=== PATIENT | male | born 1960 | race Caucasian/White ===

== ENCOUNTER 2018-04-09 05:41 | Emergency (ER) | payer OTHER, MEDICARE ==
[2018-04-09] MEDS ORDERED: MORPHINE SULFATE 10 MG/ML INJ IV ONE (07:02)
[2018-04-09] MEDS ORDERED: ONDANSETRON HCL INJ/PF 4 MG/2 ML SDV IV ONE (07:03)
--- NOTE | 2018-04-09 07:17 | ER Document Report ---
ED General - General Chief Complaint: Abdominal Pain Stated Complaint: ABDOMINAL PAIN Time Seen by Provider: 04/09/18 06:51 Mode of Arrival: Ambulatory Information source: Patient, Relative, [facility] Records Notes: 57-year-old male with no reported past medical history presents with complaint of right lower quadrant abdominal pain that started 2 weeks prior to arrival. Patient states that he was seen at [facility] his general practitioner and a CAT scan was ordered last week but he has not yet received the results. He does state that it was the first time he had been seen by a physician in many years and was told that he has "hardening of the liver". Patient's pain is described as sharp, constant and worsens overnight. Patient has had associated nausea without vomiting. He reports constipation with his last bowel movement 2 days ago. Patient was started on Levaquin for pneumonia and states that his cough and chest tightness has resolved. He is currently on day 4 of Levaquin. Patient admits to heavy alcohol use with daily beer drinking. He states his last drink was 4 days prior to arrival. He denies any history of alcohol withdrawal, tremors, tachycardia, shortness of breath, chest pain. He denies any abdominal surgeries. TRAVEL OUTSIDE OF THE [place] IN LAST 30 DAYS: No - HPI Onset: Other Onset/Duration: Gradual, Persistent, Worse Quality of pain: Stabbing Severity: Moderate Associated symptoms: Nausea, Other - Constipation, right lower quadrant abdominal pain. denies: Chest pain, Nonproductive cough, Productive cough, Diarrhea, Fever, Vomiting, Shortness of breath Exacerbated by: Movement Relieved by: Denies Similar symptoms previously: Yes Recently seen / treated by doctor: Yes - [facility] on 04/05/2018 - Related Data Allergies/Adverse Reactions: No Known Allergies Allergy (Verified 04/09/18 11:32) Past Medical History - General Information source: Patient, [facility] Records - Social History Smoking Status: Never Smoker Frequency of alcohol use: Heavy - Last drink 4 days ago Drug Abuse: None Lives with: Alone Family History: Reviewed & Not Pertinent Patient has suicidal ideation: No Patient has homicidal ideation: No - Medical History Medical History: Negative Review of Systems - Review of Systems Notes: REVIEW OF SYSTEMS: CONSTITUTIONAL : Denies fever, chills, or sweats. Denies recent illness. Denies weight loss, recent hospitalizations. EENT: Denies visual changes, eye pain. Denies sore throat, oral lesions, difficulty swallowing. CARDIOVASCULAR: Denies chest pain. Denies palpitations. Denies lower extremity edema. RESPIRATORY: Denies cough. Denies shortness of breath, wheezing. GASTROINTESTINAL: Denies vomiting, or diarrhea. Denies blood in vomitus, stools, or per rectum. Denies black, tarry stools. GENITOURINARY: Denies difficulty urinating, painful urination, frequency, blood in urine, testicular pain or penile discharge. MUSCULOSKELETAL: Denies back or neck pain or stiffness. Denies joint pain or swelling. SKIN: Denies rash, lesions or sores. HEMATOLOGIC : Denies easy bruising or bleeding. LYMPHATIC: Denies swollen glands. NEUROLOGICAL: Denies confusion or altered mental status. Denies loss of consciousness. Denies dizziness or lightheadedness. Denies headache. Denies weakness or paralysis. Denies problems difficulty with ambulation, slurred speech. Denies sensory loss, numbness, or tingling. Denies seizures. PSYCHIATRIC: Denies anxiety or stress. Denies depression, suicidal ideation, or Physical Exam - Vital signs Vitals: Pulse Resp BP Pulse Ox 100 20 161/94 H 94 04/09/18 05:43 04/09/18 05:43 04/09/18 05:43 04/09/18 05:43 Interpretation: Hypertensive - Notes Notes: PHYSICAL EXAMINATION: GENERAL: Well-appearing, well-nourished and in no acute distress. HEAD: Atraumatic, normocephalic. EYES: Pupils equal round and reactive to light, extraocular movements intact, sclera anicteric, conjunctiva are normal. ENT: Nares patent, oropharynx clear without exudates. Moist mucous membranes. NECK: Normal range of motion, supple without lymphadenopathy LUNGS: Breath sounds clear to auscultation bilaterally and equal. No wheezes rales or rhonchi. HEART: Regular rate and rhythm without murmurs ABDOMEN: Distended abdomen. Right lower quadrant abdominal pain no guarding, no rebound. No masses appreciated. Musculoskeletal: Normal range of motion, no pitting or edema. No cyanosis. NEUROLOGICAL: Cranial nerves grossly intact. Normal speech, normal gait. Normal sensory, motor exams PSYCH: Normal mood, normal affect. SKIN: Warm, Dry, normal turgor, no rashes or lesions noted. Course - Re-evaluation Re-evalutation: Laboratory 04/09/18 04/09/18 04/09/18 06:25 07:10 07:10 WBC 10.9 H RBC 4.16 L Hgb 14.4 Hct 41.4 MCV 100 H MCH 34.5 H MCHC 34.7 RDW 12.7 Plt Count 354 Seg Neutrophils % 76.5 Lymphocytes % 9.3 L Monocytes % 13.3 H Eosinophils % 0.5 Basophils % 0.4 Absolute Neutrophils 8.4 H Absolute Lymphocytes 1.0 Absolute Monocytes 1.5 H Absolute Eosinophils 0.1 Absolute Basophils 0.0 Sodium 132.1 L Potassium 4.6 Chloride 93 L Carbon Dioxide 26 Anion Gap 13 BUN 7 Creatinine 0.60 Est GFR ( Amer) > 60 Est GFR (Non-Af Amer) > 60 Glucose 115 H Lactic Acid Calcium 9.8 Total Bilirubin 2.6 H Direct Bilirubin 2.2 H Neonat Total Bilirubin Not Reportable Neonat Direct Bilirubin Not Reportable Neonat Indirect Bili Not Reportable AST 199 H ALT 64 Alkaline Phosphatase 294 H Troponin I Total Protein 7.3 Albumin 3.6 Lipase 158.6 Urine Color DEYANIRA Urine Appearance TURBID Urine pH 5.0 Ur Specific [place] 1.017 Urine Protein NEGATIVE Urine Glucose (UA) NEGATIVE Urine Ketones NEGATIVE Urine Blood NEGATIVE Urine Nitrite NEGATIVE Urine Bilirubin SMALL H Urine Urobilinogen 4.0 H Ur Leukocyte Esterase NEGATIVE Urine WBC (Auto) 2 Urine RBC (Auto) 1 Squamous Epi Cells Auto <1 Urine Mucus (Auto) MOD Urine Ascorbic Acid NEGATIVE 04/09/18 04/09/18 07:10 07:10 WBC RBC Hgb Hct MCV MCH MCHC RDW Plt Count Seg Neutrophils % Lymphocytes % Monocytes % Eosinophils % Basophils % Absolute Neutrophils Absolute Lymphocytes Absolute Monocytes Absolute Eosinophils Absolute Basophils Sodium Potassium Chloride Carbon Dioxide Anion Gap BUN Creatinine Est GFR ( Amer) Est GFR (Non-Af Amer) Glucose Lactic Acid 1.2 Calcium Total Bilirubin Direct Bilirubin Neonat Total Bilirubin Neonat Direct Bilirubin Neonat Indirect Bili AST ALT Alkaline Phosphatase Troponin I < 0.012 Total Protein Albumin Lipase Urine Color Urine Appearance Urine pH Ur Specific [place] Urine Protein Urine Glucose (UA) Urine Ketones Urine Blood Urine Nitrite Urine Bilirubin Urine Urobilinogen Ur Leukocyte Esterase Urine WBC (Auto) Urine RBC (Auto) Squamous Epi Cells Auto Urine Mucus (Auto) Urine Ascorbic Acid Abdomen/Pelvis CT 04/09/18 07:03 IMPRESSION: 1. MARKED HEPATOMEGALY. SLIGHTLY HETEROGENOUS NODULAR APPEARANCE OF THE LIVER. CONSIDER THE POSSIBILITY OF CIRRHOSIS OR OTHER CHRONIC LIVER DISEASE. 2. SMALL NODULE IN THE LEFT ADRENAL GLAND. POSSIBLY AN ADENOMA. IF CLINICALLY INDICATED, CONSIDER FOLLOW-UP MRI OF THE ADRENAL GLANDS. 3. TRACE PLEURAL EFFUSIONS. TRACE FREE FLUID IN THE ABDOMEN AND PELVIS. 4. NO OTHER SIGNIFICANT OR ACUTE FINDINGS IN THE ABDOMEN OR PELVIS. Abdomen Ultrasound 04/09/18 08:20 IMPRESSION: 1. HEPATOMEGALY WITH INNUMERABLE HYPOECHOIC MASSES THROUGHOUT THE LIVER, CONCERNING FOR DIFFUSE METASTATIC INVOLVEMENT. 2. LIMITED EVALUATION OF THE GALLBLADDER WHICH IS CONTRACTED WITH INDISTINCT GALLBLADDER WALL THICKENING. POSSIBLE SMALL STONES AND/OR SLUDGE. 57-year-old male with no reported past medical history presents with complaint of right lower quadrant abdominal pain that started 2 weeks prior to arrival. Patient states that he was seen at [facility] his general practitioner and a CAT scan was ordered last week but he has not yet received the results. He does state that it was the first time he had been seen by a physician in many years and was told that he has "hardening of the liver". Vital signs stable upon arrival. Exam is significant for abdominal distention, right lower quadrant abdominal pain. Patient did receive IV narcotic medication for his pain. CT of the abdomen showed market hepatomegaly concerning for cirrhosis but no significant ascites. Right upper quadrant ultrasound was obtained and showed innumerable masses throughout the liver concerning for diffuse metastatic involvement. The patient, his sister and his primary care physician , were all made aware of the findings. Patient and sister had no questions at this time. They are agreeable to see Dr. Abdul tomorrow at 2 PM. Patient was provided all of his imaging and lab work that was performed today. 04/09/18 08:16 Patient's primary care physician Melony LEYVA attempted to be contacted , to obtain patient's medical history. Patient is a poor informant and unable to tell me whether he has had previous LBBB. 04/09/18 08:27 I did speak to the patient's primary care provider who reviewed her recent labs with mine and patient's liver enzymes, bilirubin are basically the same. She cannot tell me what his recent CAT scan report showed. She does state that the patient has an upcoming appointment with her in 2 days and that the plan is to arrange gastroenterology follow-up. She has no EKG on record but requested copies of everything that we do today for comparison. 04/09/18 11:46 I did call back the patient's primary care provider to inform her that his right upper quadrant ultrasound is concerning for metastatic liver cancer. She will refer the patient to oncology. We will continue with the panel of pain control and provide his doctor with all of today's labs and imaging. 04/09/18 12:[address] Abdul oncology on-call who requested that I ask radiology if it was possible and ultrasound-guided liver biopsy be performed today. I was told no. She has agreed that if the biopsy cannot be done today that she will see the patient tomorrow at 2 PM in her office. 04/09/18 15:54 04/09/18 15:54 04/10/18 11:54 Patient was evaluated and treated as appropriate for the patient's presenting symptoms and complaint, with consideration of any critical or life threatening conditions that may be associated with their obtained history and exam as noted above. All results were discussed with patient. Patient provided the opportunity to ask questions, and express concerns. Patient was educated on treatments based on their presumed diagnosis as noted above. At this time we will discharge the patient with return precautions and follow-up recommendations. Verbal discharge instructions given a the bedside. Medication warnings reviewed. Patient is in agreement with this plan and has verbalized understanding of return precautions. After careful consideration I feel that that patient can be safely discharged from the emergency department, they were advised to followup with a primary care physician in 2-3 days. Dictation on this chart was performed using voice recognition software and may result in unintended grammatical, spelling, syntax or errors. - Vital Signs Vital signs: Temp Pulse Resp BP Pulse Ox 97.9 F 90 18 138/85 H 93 04/09/18 12:32 04/09/18 12:32 04/09/18 12:32 04/09/18 12:32 04/09/18 12:32 - Laboratory Result Diagrams: 04/09/18 07:10 04/09/18 07:10 Laboratory results interpreted by me: 04/09/18 04/09/18 04/09/18 06:25 07:10 07:10 WBC 10.9 H RBC 4.16 L MCV 100 H MCH 34.5 H Lymphocytes % 9.3 L Monocytes % 13.3 H Absolute Neutrophils 8.4 H Absolute Monocytes 1.5 H Sodium 132.1 L Chloride 93 L Glucose 115 H Total Bilirubin 2.6 H Direct Bilirubin 2.2 H AST 199 H Alkaline Phosphatase 294 H Urine Bilirubin SMALL H Urine Urobilinogen 4.0 H - Diagnostic Test Radiology reviewed: Image reviewed, Reports reviewed - EKG Interpretation by Me EKG shows normal: Sinus rhythm Rate: Normal Rhythm: NSR, PVC's Keo/QRS: LBBB When compared to previous EKG there are: Previous EKG unavailable Critical Care Note - Critical Care Note Total time excluding time spent on procedures (mins): 35 - Minutes of critical care time spent in direct contact evaluating and reevaluating the patient, treating symptoms, reviewing labs and studies and speaking with family and consultants excluding any procedures Discharge - Discharge Clinical Impression: Hepatomegaly, Concern for metastatic liver cancer, Tobacco use, Elevated blood pressure reading, Elevated alkaline phosphatase level, Abnormal liver enzymes Abdominal pain Qualifiers: Abdominal location: right lower quadrant Qualified Code(s): R10.31 - Right lower quadrant pain Condition: Good Disposition: HOME, SELF-CARE Instructions: Abdominal Pain ([facility]), Cirrhosis ([facility]), Liver Function Abnormality ([facility]), Pain Medication Injection ([facility]) Additional Instructions: Your ultrasound of your liver today was concerning for possible cancer. I have spoken to your primary care provider and she is aware of today's findings including your lab work and imaging. I have provided a copy of everything for you to bring with her on your next appointment in 2 days. Follow up with your [id number] hours for further care or return to the ED IMMEDIATELY if symptoms worsen or you have any concerns. If you cannot afford to follow up with your primary care physician a list of low cost clinics have been provided at the end of your discharge papers as well. Most prescribed medications have multiple side effects. The safest thing to do is when filling your prescription speak to your pharmacist regarding possible interactions with your normal home medications and over the counter medications such as Ibuprofen, Tylenol, Benadryl. If you experience any symptoms that cause you discomfort or concern you should discontinue the medication immediately and return to the emergency room or call your primary care physician. Prescriptions: Ondansetron [Zofran Odt 4 mg Tablet] 1 - 2 tab PO Q4H PRN #15 tab.rapdis PRN Reason: For Nausea/Vomiting Oxycodone HCl [Oxycodone HCl 10 MG Tablet] 1 tab PO Q6H PRN #15 tablet PRN Reason: PAIN Forms: Elevated Blood Pressure, Smoking Cessation Education Referrals: MELONY GARCIA PA-C [Primary Care Provider] - 04/11/18 CHANTELLE ABDUL MD [ACTIVE STAFF] - Follow up tomorrow (Your appointment is at 2 PM. Please arrive by 145.)
[2018-04-09 07:25] LABS: ABSOLUTE EOSINOPHILS # (AUTO) 0.1 10^3/uL (0.0-0.6); ABSOLUTE MONOCYTES (AUTO) 1.5 10^3/uL (0.1-1.4); ABSOLUTE NEUT (AUTO) 8.4 10^3/uL (1.7-8.2); BASOPHILS % (AUTO) 0.4 % (0-2); EOSINOPHILS % (AUTO) 0.5 % (0-6); HEMATOCRIT 41.4 % (37.9-51.0); HEMOGLOBIN 14.4 g/dL (13.5-17.0); LYMPHOCYTES % (AUTO) 9.3 % (13-45); MEAN CORPUSCULAR HEMOGLOBIN 34.5 pg (27.0-33.4); MEAN CORPUSCULAR HGB CONC 34.7 g/dL (32.0-36.0); MEAN CORPUSCULAR VOLUME 100 fl (80-97); MONOCYTES % (AUTO) 13.3 % (3-13); PLATELET COUNT 354 10^3/uL (150-450); RED BLOOD COUNT 4.16 10^6/uL (4.35-5.55); RED CELL DISTRIBUTION WIDTH 12.7 % (11.5-14.0); SEGMENTED NEUTROPHILS % (AUTO) 76.5 % (42-78); TOTAL CELLS COUNTED % (AUTO) 100 %; WHITE BLOOD COUNT 10.9 10^3/uL (4.0-10.5)
[2018-04-09 07:43] LABS: ALANINE AMINOTRANSFERASE 64 U/L (21-72); ALBUMIN 3.6 g/dL (3.5-5.0); ALKALINE PHOSPHATASE 294 U/L (38-126); ANION GAP 13 (5-19); ASPARTATE AMINO TRANSFERASE 199 U/L (17-59); BILIRUBIN,DIRECT 2.2 mg/dL (0.0-0.4); BILIRUBIN,TOTAL 2.6 mg/dL (0.2-1.3); BLOOD UREA NITROGEN 7 mg/dL (7-20); CALCIUM 9.8 mg/dL (8.4-10.2); CARBON DIOXIDE 26 mmol/L (22-30); CHLORIDE 93 mmol/L (98-107); GLUCOSE 115 mg/dL (75-110); LIPASE 158.6 U/L (23-300); POTASSIUM 4.6 mmol/L (3.6-5.0); SODIUM 132.1 mmol/L (137-145); TOTAL PROTEIN 7.3 g/dL (6.3-8.2)
[2018-04-09] MEDS ORDERED: FENTANYL CITRATE INJ/PF 100 MCG/2 ML AMPUL IV ONE (08:14)
--- NOTE | 2018-04-09 08:58 | RADIOLOGY REPORT (SQ) ---
EXAM DESCRIPTION: CT ABD/PELVIS WITH IV ONLY COMPLETED DATE/TIME: 04/09/2018 8:38 am REASON FOR STUDY: rlq pain COMPARISON: None. TECHNIQUE: CT scan of the abdomen and pelvis performed with intravenous and oral contrast using loren doris scanning technique with dynamic intravenous contrast injection. Images reviewed with lung, soft t issue, and bone windows. Reconstructed coronal and sagittal MPR images reviewed. Delayed images for e valuation of the urinary system also acquired. All images stored on PACS. All CT scanners at this facility use dose modulation, iterative reconstruction, and/or weight based d osing when appropriate to reduce radiation dose to as low as reasonably achievable (ALARA). [facility]: Dose Right [facility]: CareDose [facility]: Dose Right [facility]: Teradose 4D [facility]: PlastiPure CONTRAST TYPE AND DOSE: contrast/concentration: Isovue 350.00 mg/ml; Total Contrast Delivered: 100.0 ml; Total Saline Delivered: 70.0 ml RENAL FUNCTION: BUN 7 creatinine 0.6. RADIATION DOSE: CT Rad equipment meets quality standard of care and radiation dose reduction techniq ues were employed. CTDIvol: 15.2 - 17.4 mGy. DLP: 1911 mGy-cm.. LIMITATIONS: None. FINDINGS: LOWER CHEST: Trace pleural effusions. No nodules or infiltrates. LIVER: Marked hepatomegaly. Total length in the craniocaudal dimension is 24.5 cm and maximum transv erse dimension is 27 cm. Slightly heterogenous nodular appearance throughout. No masses. No dilate d ducts. SPLEEN: Normal size. No focal lesions. PANCREAS: No masses. No significant calcifications. No adjacent inflammation or peripancreatic fluid collections. Pancreatic duct not dilated. GALLBLADDER: No identified stones by CT criteria. No inflammatory changes to suggest cholecystitis. ADRENAL GLANDS: 1.5 cm nodule in the left adrenal gland. Normal right adrenal gland. RIGHT KIDNEY AND URETER: No solid masses. No significant calcification. No hydronephrosis or hydroure ter. LEFT KIDNEY AND URETER: No solid masses. No significant calcification. No hydronephrosis or hydrouret er. AORTA AND VESSELS: No aneurysm. No dissection. Renal arteries, SMA, celiac without stenosis. RETROPERITONEUM: No retroperitoneal adenopathy, hemorrhage or masses. BOWEL AND PERITONEAL CAVITY: No obstruction. No visualized masses. Trace free fluid adjacent to the liver. No inflammatory changes or thickening of bowel wall. APPENDIX: Normal. PELVIS: No significant masses. Normal bladder. Small amount of free fluid. ABDOMINAL WALL: No masses. No hernias. BONES: No significant or acute findings. Hardware in the left hip. OTHER: No other significant finding. IMPRESSION: 1. MARKED HEPATOMEGALY. SLIGHTLY HETEROGENOUS NODULAR APPEARANCE OF THE LIVER. CONSIDER THE POSSIBI LITY OF CIRRHOSIS OR OTHER CHRONIC LIVER DISEASE. 2. SMALL NODULE IN THE LEFT ADRENAL GLAND. POSSIBLY AN ADENOMA. IF CLINICALLY INDICATED, CONSIDER F OLLOW-UP MRI OF THE ADRENAL GLANDS. 3. TRACE PLEURAL EFFUSIONS. TRACE FREE FLUID IN THE ABDOMEN AND PELVIS. 4. NO OTHER SIGNIFICANT OR ACUTE FINDINGS IN THE ABDOMEN OR PELVIS. TECHNICAL DOCUMENTATION: JOB ID: [id number] Quality ID # [id number]: Final reports with documentation of one or more dose reduction techniques (e.g., Au tomated exposure control, adjustment of the mA and/or kV according to patient size, use of iterative reconstruction technique) 2010 [employer]- All Rights Reserved Reading location - IP/workstation name: [email or web address]
[2018-04-09 09:48] LABS: APPEARANCE,URINE TURBID; BILIRUBIN,URINE SMALL (NEGATIVE); COLOR,URINE AMBER; GLUCOSE, URINE NEGATIVE (NEGATIVE); KETONES,URINE NEGATIVE (NEGATIVE); LEUKOCYTE ESTERASE,URINE NEGATIVE (NEGATIVE); NITRITE,URINE NEGATIVE (NEGATIVE); PROTEIN,URINE NEGATIVE (NEGATIVE); URINE SPECIFIC GRAVITY 1.017
--- NOTE | 2018-04-09 10:40 | EKG REPORT ---
SEVERITY:- ABNORMAL ECG - SINUS RHYTHM MULTIPLE VENTRICULAR PREMATURE COMPLEXES LEFT BUNDLE BRANCH BLOCK : Confirmed by: Savanna Paige MD 09-Apr-2018 10:40:00
--- NOTE | 2018-04-09 11:08 | RADIOLOGY REPORT (SQ) ---
EXAM DESCRIPTION: U/S ABDOMEN LIMITED W/O DOP COMPLETED DATE/TIME: 04/09/2018 10:34 am REASON FOR STUDY: pain COMPARISON: None. TECHNIQUE: Dynamic and static grayscale images acquired of the abdomen and recorded on PACS. Additio nal selected color Doppler and spectral images recorded. LIMITATIONS: None. FINDINGS: PANCREAS: No masses. Visualized pancreatic duct normal caliber. LIVER: Enlarged, measuring 21.3 cm. Heterogenous echotexture with innumerable hypoechoic masses thro ughout. LIVER VASCULATURE: Normal directional flow of the main portal vein and hepatic veins. GALLBLADDER: Contracted and poorly visualized. Indistinct gallbladder wall thickening. Possible sto marily or sludge. ULTRASOUND-DETECTED MCKINNEY'S SIGN: Negative. INTRAHEPATIC DUCTS AND COMMON DUCT: CBD and intrahepatic ducts normal caliber. No filling defects. INFERIOR VENA CAVA: Normal flow. AORTA: No aneurysm. RIGHT KIDNEY: Normal size. Normal echogenicity. No solid or suspicious masses. No hydronephrosis. No calcifications. PERITONEAL AND RIGHT PLEURAL SPACE: No ascites or effusions. OTHER: No other significant findings. IMPRESSION: 1. HEPATOMEGALY WITH INNUMERABLE HYPOECHOIC MASSES THROUGHOUT THE LIVER, CONCERNING FOR DIFFUSE METAS TATIC INVOLVEMENT. 2. LIMITED EVALUATION OF THE GALLBLADDER WHICH IS CONTRACTED WITH INDISTINCT GALLBLADDER WALL THICKEN ING. POSSIBLE SMALL STONES AND/OR SLUDGE. TECHNICAL DOCUMENTATION: JOB ID: [id number] [email or web address]- All Rights Reserved Reading location - IP/workstation name: [email or web address]
[2018-04-09] MEDS ORDERED: HYDROMORPHONE HCL INJ/PF 2 MG/ML AMPULE IV ONE (12:05)
[2018-04-09 12:32] VITALS: BP 138/85
== END 2018-04-09 12:32 | disposition home or self-care (01) ==
LOC: ER 05:41
DX: R16.0 Hepatomegaly, not elsewhere classified (principal); R74.8 Abnormal levels of other serum enzymes; R10.31 Right lower quadrant pain; R03.0 Elevated blood-pressure reading, without diagnosis of hypertension; R11.0 Nausea; K59.00 Constipation, unspecified; F17.200 Nicotine dependence, unspecified, uncomplicated; Z79.899 Other long term (current) drug therapy
CPT/HCPCS: 93005; 99291; 96374; 96375; 36415; 83690; 85025; 80053; 81001; 84484; 83605; 76705; 74177; 93010; J3010; J2270; J1170; J2405

== ENCOUNTER 2018-04-12 09:10 | Day surgery (SDC) | payer OTHER, MEDICARE ==
[2018-04-12 10:01] LABS: HEMATOCRIT 40.4 % (37.9-51.0); MEAN CORPUSCULAR HEMOGLOBIN 34.5 pg (27.0-33.4); MEAN CORPUSCULAR HGB CONC 34.7 g/dL (32.0-36.0); MEAN CORPUSCULAR VOLUME 99 fl (80-97); PLATELET COUNT 382 10^3/uL (150-450); RED BLOOD COUNT 4.07 10^6/uL (4.35-5.55); RED CELL DISTRIBUTION WIDTH 12.8 % (11.5-14.0); WHITE BLOOD COUNT 9.6 10^3/uL (4.0-10.5)
[2018-04-12 10:13] LABS: INTERNATIONAL RATION (INR) 1.02
[2018-04-12 10:15] LABS: PARTIAL THROMBOPLASTIN TIME 38.3 SEC (23.5-35.8)
[2018-04-12 10:19] LABS: BLOOD UREA NITROGEN 6 mg/dL (7-20)
[2018-04-12] MEDS ORDERED: MIDAZOLAM 2 MG/2 ML INJ ONE (11:39)
[2018-04-12] MEDS ORDERED: FENTANYL CITRATE INJ/PF 100 MCG/2 ML AMPUL ONE (11:39)
[2018-04-12] MEDS ORDERED: LIDOCAINE 1% INJ-PF (10 MG/ML) 30 ML SDV ONE (11:39)
--- NOTE | 2018-04-12 12:59 | RADIOLOGY REPORT (SQ) ---
EXAM DESCRIPTION: CT BIOPSY LIVER; CT NEEDLE PLACEMENT COMPLETED DATE/TIME: 04/12/2018 12:15 pm REASON FOR STUDY: DIFFUSE LIVER LESIONS K76.9 LIVER DISEASE, UNSPECIFIED COMPARISON: None. TECHNIQUE: After obtaining informed consent and explaining the risks and benefits of conscious sedat ion,the patient agreed to the procedure. The patient was brought to the CT suite and was placed supin e on the CT gurney. The patient was prepped and draped in the usual sterile fashion . Axial images w ere obtained for targeting of theright low. An appropriate access site was selected. IV conscious sed ation was administered and physician direction by the registered nurse using 0 milligrams of Versed a nd 125 micrograms of fentanyl. Physiologic monitoring was provided before, during, and after sedation . The total sedation time was 30 minutes. Documentation face to face time, the performing proceduralist, spent monitoring the patient: 10minute s. Noncontrasted CT of the liver was performed to localize an approach for the right liver biopsy. A p ercutaneous site was marked. Time out was performed. After skin prep and local lidocaine for skin and deep tissue anesthesia, a coaxial biopsy needle sys tem was used to obtain several cores of tissue from the right lobe of the liver. These were submitte d to the lab in formalin. No immediate postprocedure complications. Total of [address] fluoro was used. 33 CT Fluoroscopic images were obtained and saved to PACS. All CT scanners at this facility use dose modulation, iterative reconstruction, and/or weight based d osing when appropriate to reduce radiation dose to as low as reasonably achievable (ALARA). [facility]: Dose Right [facility]: CareDose [facility]: Dose Right [facility]: Teradose 4D [facility]: [employer] RADIATION DOSE: CT Rad equipment meets quality standard of care and radiation dose reduction techniq ues were employed. CTDIvol: 4.0 - 19.9 mGy. DLP: 500 mGy-cm. mGy. LIMITATIONS: None. FINDINGS: CT guided liver biopsy as detailed above. IMPRESSION: CT GUIDED LIVER BIOPSY PERFORMED ABOVE. PATHOLOGY PENDING. NO IMMEDIATE COMPLICATI ONS. COMMENT: Patient medication list reviewed:Yes- Quality ID# [id number]:Eligible professional attests to docu menting in the medical record they obtained, updated, or reviewed the patient's current medications.. Quality ID 145: Final reports for procedures using fluoroscopy that document radiation exposure vikram tori, or exposure time and number of fluorographic images (if radiation exposure indices are not avail able) TECHNICAL DOCUMENTATION: JOB ID: [id number] Quality ID # [id number]: Final reports with documentation of one or more dose reduction techniques (e.g., A utomated exposure control, adjustment of the mA and/or kV according to patient size, use of iterative reconstruction technique) 2010 [employer]- All Rights Reserved Reading location - IP/workstation name: [email or web address]
--- NOTE | 2018-04-12 12:59 | RADIOLOGY REPORT (SQ) ---
EXAM DESCRIPTION: CT BIOPSY LIVER; CT NEEDLE PLACEMENT COMPLETED DATE/TIME: 04/12/2018 12:15 pm REASON FOR STUDY: DIFFUSE LIVER LESIONS K76.9 LIVER DISEASE, UNSPECIFIED COMPARISON: None. TECHNIQUE: After obtaining informed consent and explaining the risks and benefits of conscious sedat ion,the patient agreed to the procedure. The patient was brought to the CT suite and was placed supin e on the CT gurney. The patient was prepped and draped in the usual sterile fashion . Axial images w ere obtained for targeting of theright low. An appropriate access site was selected. IV conscious sed ation was administered and physician direction by the registered nurse using 0 milligrams of Versed a nd 125 micrograms of fentanyl. Physiologic monitoring was provided before, during, and after sedation . The total sedation time was 30 minutes. Documentation face to face time, the performing proceduralist, spent monitoring the patient: 10minute s. Noncontrasted CT of the liver was performed to localize an approach for the right liver biopsy. A p ercutaneous site was marked. Time out was performed. After skin prep and local lidocaine for skin and deep tissue anesthesia, a coaxial biopsy needle sys tem was used to obtain several cores of tissue from the right lobe of the liver. These were submitte d to the lab in formalin. No immediate postprocedure complications. Total of [address] fluoro was used. 33 CT Fluoroscopic images were obtained and saved to PACS. All CT scanners at this facility use dose modulation, iterative reconstruction, and/or weight based d osing when appropriate to reduce radiation dose to as low as reasonably achievable (ALARA). [facility]: Dose Right [facility]: CareDose [facility]: Dose Right [facility]: Teradose 4D [facility]: [employer] RADIATION DOSE: CT Rad equipment meets quality standard of care and radiation dose reduction techniq ues were employed. CTDIvol: 4.0 - 19.9 mGy. DLP: 500 mGy-cm. mGy. LIMITATIONS: None. FINDINGS: CT guided liver biopsy as detailed above. IMPRESSION: CT GUIDED LIVER BIOPSY PERFORMED ABOVE. PATHOLOGY PENDING. NO IMMEDIATE COMPLICATI ONS. COMMENT: Patient medication list reviewed:Yes- Quality ID# [id number]:Eligible professional attests to docu menting in the medical record they obtained, updated, or reviewed the patient's current medications.. Quality ID 145: Final reports for procedures using fluoroscopy that document radiation exposure vikram tori, or exposure time and number of fluorographic images (if radiation exposure indices are not avail able) TECHNICAL DOCUMENTATION: JOB ID: [id number] Quality ID # [id number]: Final reports with documentation of one or more dose reduction techniques (e.g., A utomated exposure control, adjustment of the mA and/or kV according to patient size, use of iterative reconstruction technique) 2010 [employer]- All Rights Reserved Reading location - IP/workstation name: [email or web address]
[2018-04-12 14:41] VITALS: BP 143/84
== END 2018-04-12 14:20 | disposition home or self-care (01) ==
LOC: RAD 09:10
PROVIDERS: ATTEND Internal Medicine Medical Oncology
DX: C7B.8 Other secondary neuroendocrine tumors (principal)
CPT/HCPCS: 36415; 84520; 82565; 85027; 85610; 85730; 88342 ×2; 88341 ×2; 88305 ×2; 88313 ×2; 77012; 47000; J3010; J3490; J2250

== ENCOUNTER → 2018-04-28 | Outpatient (CLI) | payer OTHER, MEDICARE ==
--- NOTE | 2018-04-29 10:39 | RADIOLOGY REPORT (SQ) ---
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 RADIONUCLIDE AND DOSE: 10 mCi F18 FDG The route of agent administration: Intravenous FASTING BLOOD SUGAR: 105 mg/dl CONTRAST TYPE AND DOSE: No CT contrast given. TECHNIQUE: Blood glucose level was verified. Above dose of FDG was injected intravenously. 2-D seg mented attenuation correction images were obtained from the base of the skull to the midthighs. Nonc ontrast CT images were obtained for attenuation correction and fusion with emission images. CT image s were performed without oral or intravenous contrast and are not sensitive for parenchymal lesions. A series of overlapping emission PET images were obtained. Images reviewed and manipulated at [facility] work station by the radiologist. Images stored on PACS. LIMITATIONS: None. FINDINGS: HEAD AND NECK: No areas of abnormal metabolic activity in the soft tissues of the head and neck. CHEST: Right hilar mass measuring 3.1 x 4.4 cm. Mean SUV 7.44. Postobstructive atelectasis/ infiltr ate in the posterior right lower lobe. ABDOMEN AND PELVIS: Diffuse hepatic enlargement with diffuse heterogeneity on CT imaging. Diffuse in creased activity on PET imaging. Expected physiologic activity is present in the genitourinary system and bowel. PROXIMAL LOWER EXTREMITIES: No areas of abnormal metabolic activity in the soft tissues of the lower extremities. BONES: No abnormal metabolic activity in the visualized skeleton. ADDITIONAL CT FINDINGS: No additional significant findings on the noncontrast CT images. Background blood pool activity mean SUV 1.36. Background soft tissue activity measured in the spleen, mean SUV 1.08. OTHER: No other significant findings. IMPRESSION: 1. HYPERMETABOLIC RIGHT HILAR MASS WHICH IS MOST LIKELY THE PATIENT'S PRIMARY. POSTOBSTRUCTIVE ATELE CTASIS VERSUS INFILTRATE. 2. MARKED HEPATOMEGALY WITH DIFFUSE HETEROGENEITY AND DIFFUSE INCREASED ACTIVITY ON PET IMAGING CONSI STENT WITH KNOWN METASTATIC INVOLVEMENT. 3. NO OTHER AREAS OF ABNORMAL ACTIVITY ON PET IMAGING. TECHNICAL DOCUMENTATION: JOB ID: [id number] [employer]- All Rights Reserved Reading location - IP/workstation name: [email or web address]
== END ==
LOC: RAD 19:07
PROVIDERS: ATTEND Internal Medicine Medical Oncology
DX: C7A.8 Other malignant neuroendocrine tumors (principal)
CPT/HCPCS: 78815; A9552

== ENCOUNTER 2018-08-22 11:52 | Emergency (ER) | payer MEDICARE, OTHER ==
[2018-08-22 12:04] VITALS: BP 120/56
--- NOTE | 2018-08-22 12:41 | ER Document Report ---
ED Medical Screen (RME) - General Chief Complaint: Upper Abdominal Pain Stated Complaint: STOMACH PAIN Time Seen by Provider: 08/22/18 12:38 Primary Care Provider: CHANTELLE ABDUL MD [Primary Care Provider] - Follow up as needed TRAVEL OUTSIDE OF THE [place] IN LAST 30 DAYS: No - HPI Notes: 08/22/18 12:38 complained of epigastric abdominal pain which started yesterday. He denies any trauma to the abdomen. He also denies chest pain but he has some shortness of breath. On exam, there is tenderness to palpation at the epigastric area of the abdomen. Patient has history of lung cancer with metastasis to the liver and he is on chemotherapy. - Related Data Allergies/Adverse Reactions: No Known Allergies Allergy (Verified 08/22/18 12:00) Past Medical History - Past Medical History Cardiac Medical History: Denies: Hx Coronary Artery Disease, Hx Heart Attack, Hx Hypertension Pulmonary Medical History: Reports: Hx Bronchitis, Hx Pneumonia - RECENT Denies: Hx Asthma, Hx COPD Neurological Medical History: Denies: Hx Cerebrovascular Accident, Hx Seizures Renal/ Medical History: Denies: Hx Peritoneal Dialysis Musculoskeltal Medical History: Reports Hx Arthritis - Immunizations Hx Diphtheria, Pertussis, Tetanus Vaccination: Yes History of Influenza Vaccine for 03/2017 - 08/2017 Season: No Physical Exam - Vital signs Vitals: Temp Pulse Resp BP Pulse Ox 98.1 F 91 18 120/56 L 96 08/22/18 12:02 08/22/18 12:02 08/22/18 12:02 08/22/18 12:02 08/22/18 12:02 Course - Vital Signs Vital signs: Temp Pulse Resp BP Pulse Ox 98.1 F 91 18 120/56 L 96 08/22/18 12:02 08/22/18 12:02 08/22/18 12:02 08/22/18 12:02 08/22/18 12:02 Doctor's Discharge - Discharge Referrals: CHANTELLE ABDUL MD [Primary Care Provider] - Follow up as needed
[2018-08-22] MEDS ORDERED: MORPHINE SULFATE 10 MG/ML INJ IV ONE (12:42)
[2018-08-22] MEDS ORDERED: ONDANSETRON HCL INJ/PF 4 MG/2 ML SDV IV ONE (12:42)
[2018-08-22 13:14] LABS: INTERNATIONAL RATION (INR) 0.94; PROTHROMBIN TIME 13.1 SEC (11.4-15.4)
[2018-08-22 13:15] LABS: PARTIAL THROMBOPLASTIN TIME 30.4 SEC (23.5-35.8)
[2018-08-22 13:42] LABS: CREATINE KINASE MB 0.79 ng/mL (<4.55); TROPONIN I 0.033 ng/mL
[2018-08-22 13:43] LABS: ALANINE AMINOTRANSFERASE 27 U/L (21-72); ALBUMIN 4.5 g/dL (3.5-5.0); ALKALINE PHOSPHATASE 144 U/L (38-126); ANION GAP 11 (5-19); ASPARTATE AMINO TRANSFERASE 83 U/L (17-59); BILIRUBIN,DIRECT 0.4 mg/dL (0.0-0.4); BILIRUBIN,TOTAL 0.7 mg/dL (0.2-1.3); BLOOD UREA NITROGEN 7 mg/dL (7-20); CALCIUM 9.9 mg/dL (8.4-10.2); CARBON DIOXIDE 25 mmol/L (22-30); CHLORIDE 97 mmol/L (98-107); CREATINE KINASE 42 U/L (55-170); GLUCOSE 100 mg/dL (75-110); LIPASE 114.5 U/L (23-300); POTASSIUM 4.5 mmol/L (3.6-5.0); SODIUM 133.1 mmol/L (137-145); TOTAL PROTEIN 7.6 g/dL (6.3-8.2)
--- NOTE | 2018-08-22 13:59 | RADIOLOGY REPORT (SQ) ---
EXAM DESCRIPTION: CHEST SINGLE VIEW COMPLETED DATE/TIME: 08/22/2018 1:23 pm REASON FOR STUDY: Shortness of breath COMPARISON: PET-CT dated 04/28/2018. EXAM PARAMETERS: NUMBER OF VIEWS: One view. TECHNIQUE: Single frontal radiographic view of the chest acquired. RADIATION DOSE: NA LIMITATIONS: None. FINDINGS: LUNGS AND PLEURA: Faint linear density extending through the mid right lung from the right hilum. No lobar infiltrates, masses or pneumothorax. No pleural effusion. MEDIASTINUM AND HILAR STRUCTURES: Right hilar fullness. HEART AND VASCULAR STRUCTURES: Heart normal in size. Normal vasculature. BONES: No acute findings. HARDWARE: None in the chest. OTHER: No other significant finding. IMPRESSION: RIGHT HILAR FULLNESS AND FAINT LINEAR DENSITY EXTENDING THROUGH THE MID RIGHT LUNG. SIM ILAR FINDINGS ON THE PREVIOUS PET-CT SECONDARY TO MALIGNANT PROCESS. NO ACUTE FINDINGS. TECHNICAL DOCUMENTATION: JOB ID: [id number] [employer]- All Rights Reserved Reading location - IP/workstation name: [email or web address]
--- NOTE | 2018-08-22 14:38 | RADIOLOGY REPORT (SQ) ---
EXAM DESCRIPTION: CT ABD/PELVIS WITH IV ONLY COMPLETED DATE/TIME: 08/22/2018 2:16 pm REASON FOR STUDY: Epigastric abdominal pain COMPARISON: 04/09/2018 TECHNIQUE: CT scan of the abdomen and pelvis performed using helical scanning technique with dynamic intravenous contrast injection. No oral contrast. Images reviewed with lung, soft tissue, and bone windows. Reconstructed coronal and sagittal MPR images reviewed. Delayed images for evaluation of the urinary system also acquired. All images stored on PACS. All CT scanners at this facility use dose modulation, iterative reconstruction, and/or weight based d osing when appropriate to reduce radiation dose to as low as reasonably achievable (ALARA). [facility]: Dose Right [facility]: CareDose [facility]: Dose Right [facility]: Teradose 4D [facility]: [employer] CONTRAST TYPE AND DOSE: contrast/concentration: Isovue 350.00 mg/ml; Total Contrast Delivered: 100.0 ml; Total Saline Delivered: 72.0 ml RENAL FUNCTION: BUN 7 creatinine 0.58 RADIATION DOSE: CT Rad equipment meets quality standard of care and radiation dose reduction techniq ues were employed. CTDIvol: 12.0 - 16.6 mGy. DLP: 1463 mGy-cm.. LIMITATIONS: None. FINDINGS: LOWER CHEST: No significant findings. No nodules or infiltrates. LIVER: Hepatomegaly. Diffusely heterogeneous with ill-defined nodularity. SPLEEN: Normal size. No focal lesions. PANCREAS: No masses. No significant calcifications. No adjacent inflammation or peripancreatic fluid collections. Pancreatic duct not dilated. GALLBLADDER: No identified stones by CT criteria. No inflammatory changes to suggest cholecystitis. ADRENAL GLANDS: Stable small left adrenal nodule. RIGHT KIDNEY AND URETER: No solid masses. No significant calcifications. No hydronephrosis or hyd roureter. LEFT KIDNEY AND URETER: No solid masses. No significant calcifications. No hydronephrosis or hydr oureter. AORTA AND VESSELS: No aneurysm. No dissection. Renal arteries, SMA, celiac without stenosis. RETROPERITONEUM: No retroperitoneal adenopathy, hemorrhage or masses. BOWEL AND PERITONEAL CAVITY: No masses or inflammatory changes. No free fluid or peritoneal masses. APPENDIX: Normal. PELVIS: Thickening of the wall of the bladder. ABDOMINAL WALL: No masses. No hernias. BONES: No significant or acute findings. OTHER: No other significant finding. IMPRESSION: Hepatomegaly with diffuse ill-defined nodularity concerning for cirrhosis. Cannot entir gualberto exclude diffuse metastatic disease. Correlate clinically. Stable left adrenal nodule. Thickeni ng of the bladder wall. It is possible that this is secondary to nondistention. Cannot exclude cyst itis. TECHNICAL DOCUMENTATION: JOB ID: [id number] Quality ID # [id number]: Final reports with documentation of one or more dose reduction techniques (e.g., Au tomated exposure control, adjustment of the mA and/or kV according to patient size, use of iterative reconstruction technique) 2010 [employer]- All Rights Reserved Reading location - IP/workstation name: [email or web address]
[2018-08-22 14:45] LABS: ABSOLUTE EOSINOPHILS # (AUTO) 0.2 10^3/uL (0.0-0.6); ABSOLUTE LYMPHOCYTES (AUTO) 1.6 10^3/uL (0.5-4.7); ABSOLUTE MONOCYTES (AUTO) 0.6 10^3/uL (0.1-1.4); ABSOLUTE NEUT (AUTO) 2.1 10^3/uL (1.7-8.2); BASOPHILS % (AUTO) 0.2 % (0-2); EOSINOPHILS % (AUTO) 3.4 % (0-6); HEMATOCRIT 22.2 % (37.9-51.0); MEAN CORPUSCULAR HEMOGLOBIN 37.1 pg (27.0-33.4); MEAN CORPUSCULAR HGB CONC 35.1 g/dL (32.0-36.0); MONOCYTES % (AUTO) 12.4 % (3-13); RED CELL DISTRIBUTION WIDTH 27.2 % (11.5-14.0); TOTAL CELLS COUNTED % (AUTO) 100 %; WHITE BLOOD COUNT 4.5 10^3/uL (4.0-10.5)
[2018-08-22 14:53] LABS: HEMOGLOBIN 7.8 g/dL (13.5-17.0); MEAN CORPUSCULAR VOLUME 106 fl (80-97); PLATELET COUNT 61 10^3/uL (150-450)
[2018-08-22 15:05] LABS: ANISOCYTOSIS 3+; OVALOCYTES SLIGHT; PLATELET COMMENT DECREASED; POLYCHROMASIA SLIGHT; TEAR DROP CELLS 1+
[2018-08-22] MEDS ORDERED: NORMAL SALINE 250 ML IV PRN (18:31)
--- NOTE | 2018-08-22 18:56 | EKG REPORT ---
SEVERITY:- ABNORMAL ECG - SINUS RHYTHM LEFT BUNDLE BRANCH BLOCK : Confirmed by: Joni Parra MD 22-Aug-2018 18:55:45
[2018-08-22] MEDS ORDERED: OXYCODONE HCL SR 10 MG TABLET PO ONE (19:06)
[2018-08-22] MEDS ORDERED: FAMOTIDINE 20 MG TABLET PO ONE (19:09)
--- NOTE | 2018-08-22 20:40 | ER Document Report ---
Entered by BRENDEN ABBOTT SCRIBE 08/22/18 1507 Acting as scribe for:WES GARCIA DO ED General - General Chief Complaint: Upper Abdominal Pain Stated Complaint: STOMACH PAIN Time Seen by Provider: 08/22/18 12:38 Primary Care Provider: CHANTELLE ABDUL MD [Primary Care Provider] - Follow up as needed Mode of Arrival: Ambulatory Information source: Patient Notes: Patient is a 57 year old male with lung cancer with metastases to the liver presents to the emergency department complaining of epigastric abdominal pain onset yesterday. Patient states the pain is progressively worsening and is exacerbated with food and relived with cold water. He reports having similar issues in the past and was subsequently diagnosed with lung cancer. He also complains of being "dizzy headed" further stating he feels like he needs to sit down after standing. He denies trouble breathing, nausea or vomiting. TRAVEL OUTSIDE OF THE [place] IN LAST 30 DAYS: No - Related Data Allergies/Adverse Reactions: No Known Allergies Allergy (Verified 08/22/18 12:00) Past Medical History - General Information source: Patient - Social History Smoking Status: Current Every Day Smoker Frequency of alcohol use: None Drug Abuse: None Family History: Reviewed & Not Pertinent Patient has suicidal ideation: No Patient has homicidal ideation: No Pulmonary Medical History: Reports: Hx Bronchitis, Hx Pneumonia - RECENT Musculoskeletal Medical History: Reports Hx Arthritis Past Surgical History: Reports: Hx Orthopedic Surgery - L hip - Immunizations Hx Diphtheria, Pertussis, Tetanus Vaccination: Yes Review of Systems - Review of Systems Constitutional: No symptoms reported EENT: No symptoms reported Cardiovascular: See HPI, Dizziness, Lightheaded Respiratory: No symptoms reported Gastrointestinal: See HPI Genitourinary: No symptoms reported Male Genitourinary: No symptoms reported Musculoskeletal: No symptoms reported Skin: No symptoms reported Hematologic/Lymphatic: No symptoms reported Neurological/Psychological: No symptoms reported -: Yes All other systems reviewed and negative Physical Exam - Vital signs Vitals: Temp Pulse Resp BP Pulse Ox 98.1 F 91 18 120/56 L 96 08/22/18 12:02 08/22/18 12:02 08/22/18 12:02 08/22/18 12:02 08/22/18 12:02 - Notes Notes: GENERAL: Alert, interacts well. No acute distress. HEAD: Normocephalic, atraumatic. EYES: Pupils equal, round, and reactive to light. Extraocular movements intact. ENT: Oral mucosa moist, tongue midline. NECK: Full range of motion. Supple. Trachea midline. LUNGS: Clear to auscultation bilaterally, no wheezes, rales, or rhonchi. No respiratory distress. HEART: Regular rate and rhythm. No murmurs, gallops, or rubs. ABDOMEN: Soft, RUQ and epigastric tenderness to palpation, reproduces chief complaint. No guarding, rigidity or rebound. Non-distended. Bowel sounds present in all 4 quadrants. EXTREMITIES: Moves all 4 extremities spontaneously. No edema, radial and dorsalis pedis pulses 2/4 bilaterally. No cyanosis. NEUROLOGICAL: Alert and oriented x3. Normal speech. PSYCH: Normal affect, normal mood. SKIN: Warm, dry, normal turgor. No rashes or lesions noted. Course - Re-evaluation Re-evalutation: 08/22/18 18:55 Patient is markedly anemic with hemoglobin 7.8, the significant change from 1 month ago, coags normal, sodium slightly low at 133.1, AST and alk phos mildly elevated, troponin is negative but detectable at 0.033. This is being repeated now. Lipase is normal. Chest x-ray shows no acute process but there is the chronic changes in the right side of the lung consistent with his metastatic lung cancer. CT scan of the abdomen pelvis showed metastases to the liver but no other acute abnormality. Suspect that the patient's symptoms are coming from a combination of his anemia which is causing his fatigue and that the epigastric pain that is worsened with large meals and is relieved by cold water is coming from heartburn. Patient was discussed with Dr. Abdul who agrees with repeat troponin as well as transfusing the patient. When I discussed this plan with the patient he was agreeable to having his troponin repeated but does not wish to have his transfusion this evening. He would prefer to go to the infusion center where he is gone multiple times in the past. I am agreeable to this plan. I am setting this up through the nursing metal hanging supervisor and filling out all the orders. Blood bank is aware of this plan. 08/22/18 19:38 Patient is currently refusing to allow his blood to be drawn to look for a change in his troponin. Risks and benefits of leaving including the possibility of dying from a heart attack will be discussed. Patient is already been set up for an outpatient blood transfusion. Patient is leaving AGAINST MEDICAL ADVICE. 08/22/18 19:52 Patient has decided to allow us to draw the blood for the troponin but is not going to stay for the results. He will be called if this comes back elevated. - Vital Signs Vital signs: Temp Pulse Resp BP Pulse Ox 98.1 F 91 18 120/56 L 96 08/22/18 12:02 08/22/18 12:02 08/22/18 12:02 08/22/18 12:02 08/22/18 12:02 - Laboratory Result Diagrams: 08/22/18 14:20 08/22/18 12:55 Laboratory results interpreted by me: 08/22/18 08/22/18 12:55 14:20 RBC 2.10 L Hgb 7.8 L Hct 22.2 L MCV 106 H D MCH 37.1 H RDW 27.2 H Plt Count 61 L Sodium 133.1 L Chloride 97 L AST 83 H Alkaline Phosphatase 144 H Creatine Kinase 42 L Discharge - Discharge Clinical Impression: Epigastric abdominal pain GERD (gastroesophageal reflux disease) Qualifiers: Esophagitis presence: without esophagitis Qualified Code(s): K21.9 - Gastro- esophageal reflux disease without esophagitis Lung cancer Qualifiers: Laterality: right Lung location: unspecified part of lung Qualified Code(s): C34.91 - Malignant neoplasm of unspecified part of right bronchus or lung Anemia Qualifiers: Anemia type: unspecified type Qualified Code(s): D64.9 - Anemia, unspecified Condition: Stable Disposition: HOME, SELF-CARE Additional Instructions: You are choosing to leave without completing your testing. There is a risk that you may began having a heart attack. You have refused to allow us to draw your blood. Please return at any point if your pain worsens or if you want to complete your workup. You have been set up for a blood transfusion at 8 AM tomorrow morning. Please be at the registration desk in the outpatient area by 8 AM tomorrow morning to get your blood transfusion. Prescriptions: Famotidine [Pepcid 20 mg Tablet] 20 mg PO BID #60 tablet Referrals: CHANTELLE ABDUL MD [Primary Care Provider] - Follow up as needed I personally performed the services described in the documentation, reviewed and edited the documentation which was dictated to the scribe in my presence, and it accurately records my words and actions.
== END 2018-08-22 20:01 | disposition home or self-care (01) ==
LOC: ER 11:52
DX: K21.9 Gastro-esophageal reflux disease without esophagitis (principal); D64.9 Anemia, unspecified; C34.91 Malignant neoplasm of unspecified part of right bronchus or lung; C78.7 Secondary malignant neoplasm of liver and intrahepatic bile duct; R42 Dizziness and giddiness; R10.13 Epigastric pain; R10.10 Upper abdominal pain, unspecified; F17.200 Nicotine dependence, unspecified, uncomplicated
CPT/HCPCS: 93005; 99284; 96374; 96375; 86900; 86901; 36415; 86677; 82553; 86850; 82550; 83690; 85025; 85610; 85730; 80053; 84484; 71045; 74177; 93010; J2270; A9270; J2405

== ENCOUNTER 2018-10-15 09:32 | Inpatient (IN) | payer OTHER, MEDICARE ==
[2018-10-15] MEDS ORDERED: LIDOCAINE 1%/EPINEPHRINE INJ 20 ML VIAL INJ ONE (09:55)
--- NOTE | 2018-10-15 10:11 | ER Document Report ---
ED General - General Chief Complaint: Abdominal Pain Stated Complaint: ABDOMINAL PAIN Time Seen by Provider: 10/15/18 09:50 Notes: 57-year-old male with metastatic lung cancer to the liver presents with worsening abdominal pain and distention for about 2 weeks. Previously not known to have ascites and is never had a paracentesis. Sent from radiation [facility]. Status post chemo now receiving radiation. Known stage IV disease. No confusion. Denies diarrhea. Increased jaundice per [place]. TRAVEL OUTSIDE OF THE [place] IN LAST 30 DAYS: No - Related Data Allergies/Adverse Reactions: No Known Allergies Allergy (Verified 08/22/18 12:00) Past Medical History - Social History Smoking Status: Former Smoker Family History: Reviewed & Not Pertinent - Past Medical History Cardiac Medical History: Denies: Hx Coronary Artery Disease, Hx Heart Attack, Hx Hypertension Pulmonary Medical History: Reports: Hx Bronchitis, Hx Pneumonia - RECENT Denies: Hx Asthma, Hx COPD Neurological Medical History: Denies: Hx Cerebrovascular Accident, Hx Seizures Renal/ Medical History: Denies: Hx Peritoneal Dialysis Musculoskeletal Medical History: Reports Hx Arthritis - LEFT HIP Past Surgical History: Reports: Hx Orthopedic Surgery - L hip - Immunizations Hx Diphtheria, Pertussis, Tetanus Vaccination: Yes Review of Systems - Review of Systems Notes: REVIEW OF SYSTEMS GEN: Denies fever, chills, weight loss ENT: Denies sore throat, nasal discharge, ear pain EYES: Denies blurry vision, eye pain, discharge CV: Denies chest pain, palpitations, edema RESP: Denies cough, shortness of breath, wheezing GI: Abdominal pain early satiety decreased oral intake MSK: Denies joint pain/swelling, edema, SKIN: Denies rash, skin lesions LYMPH: Denies swollen glands/lymph nodes NEURO: Denies headache, focal weakness or numbness, dizziness PSYCH: Denies depression, suicidal or homicidal ideation PHYSICAL EXAMINATION General: Looks unwell Head: Atraumatic, normocephalic ENT: Mouth normal, oropharynx moist, no exudates or tonsillar enlargement Eyes: Conjunctiva normal, pupils equal, lids normal Neck: No JVD, supple, no guarding CVS: Normal rate, regular rhythm, no murmurs Resp: No resp distress, equal and normal breath sounds bilaterally GI: Ascites with tenderness, and peritoneal rebound guarding Ext: No deformities, no edema, normal range of motion in upper and lower ext Back: No CVA or midline TTP Skin: On this, no rash, warm Lymphatic: No lymphadeopathy noted Neuro: Awake, alert. Face symmetric. GCS 15. No asterixis. Physical Exam - Vital signs Vitals: Temp Pulse Resp BP Pulse Ox 97.6 F 83 14 106/50 L 93 10/15/18 09:38 10/15/18 09:38 10/15/18 09:38 10/15/18 09:38 10/15/18 09:38 Course - Re-evaluation Re-evalutation: 10/15/18 10:17 Patient with metastatic lung cancer presents with abdominal distention and jaundice, concerning for new onset ascites in the setting of liver mass/liver metastases. Not clinically encephalopathic but will check ammonia, will check other labs including platelets and PTT, will give Rocephin in the case that this is new onset of SBP, and plan for diagnostic paracentesis. 10/15/18 10:38 Ultrasound negative for ascites but positive for hepatomegaly which is likely the cause of the distention and pain. Probably also some degree of abdominal metastases. 10/15/18 12:06 Ultrasound the bedside does not show fluid. Will order CTLFTs are worsening, hyponatremia is worsening. Patient be admitted. Discussed with hospitalist. Contact Dr. Downs. 10/15/18 13:00 Jean with hospitalist for admissionwas unable to contact Dr. Downs. T shows hepatomegaly with no other findings which are acute. - Vital Signs Vital signs: Temp Pulse Resp BP Pulse Ox 97.6 F 83 19 129/71 H 98 10/15/18 09:38 10/15/18 09:38 10/15/18 12:36 10/15/18 12:36 10/15/18 12:36 - Laboratory Result Diagrams: 10/15/18 10:13 10/15/18 10:13 Laboratory results interpreted by me: 10/15/18 10/15/18 10/15/18 10:13 10:13 10:13 WBC 11.1 H RBC 2.84 L Hgb 11.4 L Hct 31.5 L MCV 111 H MCH 40.0 H MCHC 36.1 H RDW 22.8 H Band Neutrophils % 1 L Sodium 126.3 L Chloride 86 L BUN 21 H Total Bilirubin 8.8 H Direct Bilirubin 7.9 H AST 406 H ALT 85 H Alkaline Phosphatase 341 H Ammonia 38.1 H Albumin 3.3 L - Diagnostic Test Radiology reviewed: Image reviewed, Reports reviewed Procedures - Ultrasound/Bedside Ultrasound/Bedside Time completed: 10:30 Ultrasound: Other - Limited abdominal ultrasound for ascites. Hepatomegaly is seen. Thick-walled gallbladder is seen. Negative sonographic James's, no intra-abdominal fluid is detected in all 4 quadrants. Discharge - Discharge Clinical Impression: Hepatomegaly Condition: Fair Disposition: ADMITTED INPATIENT Admitting Provider: Lynn (Hospitalist) Unit Admitted: Medical Floor
[2018-10-15] MEDS ORDERED: HYDROMORPHONE HCL INJ/PF 2 MG/ML AMPULE IV ONE ×3 (10:16→16:36)
[2018-10-15 10:55] LABS: ALANINE AMINOTRANSFERASE 85 U/L (21-72); ALBUMIN 3.3 g/dL (3.5-5.0); ALKALINE PHOSPHATASE 341 U/L (38-126); ANION GAP 14 (5-19); ASPARTATE AMINO TRANSFERASE 406 U/L (17-59); BILIRUBIN,DIRECT 7.9 mg/dL (0.0-0.4); BILIRUBIN,TOTAL 8.8 mg/dL (0.2-1.3); BLOOD UREA NITROGEN 21 mg/dL (7-20); CALCIUM 9.3 mg/dL (8.4-10.2); CARBON DIOXIDE 26 mmol/L (22-30); CHLORIDE 86 mmol/L (98-107); GLUCOSE 94 mg/dL (75-110); POTASSIUM 4.9 mmol/L (3.6-5.0); SODIUM 126.3 mmol/L (137-145); TOTAL PROTEIN 6.8 g/dL (6.3-8.2)
[2018-10-15] MEDS ORDERED: CEFTRIAXONE 1 GM/D5W RTU 1 GM/50 ML RTUPB IV ONE (11:00)
[2018-10-15 11:18] LABS: HEMATOCRIT 31.5 % (37.9-51.0); HEMOGLOBIN 11.4 g/dL (13.5-17.0); MEAN CORPUSCULAR HGB CONC 36.1 g/dL (32.0-36.0); PLATELET COUNT 267 10^3/uL (150-450); RED BLOOD COUNT 2.84 10^6/uL (4.35-5.55); RED CELL DISTRIBUTION WIDTH 22.8 % (11.5-14.0); WHITE BLOOD COUNT 11.1 10^3/uL (4.0-10.5)
[2018-10-15 11:19] LABS: ABSOLUTE LYMPHOCYTES# (MANUAL) 1.9 10^3/uL (0.5-4.7); ABSOLUTE MONOCYTES # (MANUAL) 1.2 10^3/uL (0.1-1.4); ABSOLUTE NEUTROPHILS# (MANUAL) 7.4 10^3/uL (1.7-8.2); ANISOCYTOSIS 3+; BAND NEUTROPHILS % (MANUAL) 1 % (3-5); BASOPHILS % (MANUAL) 0 % (0-2); EOSINOPHILS % (MANUAL) 5 % (0-6); LYMPHOCYTES % (MANUAL) 17 % (13-45); MONOCYTES % (MANUAL) 11 % (3-13); SEGMENTED NEUTROPHILS % (MAN) 66 % (42-78); TOTAL CELLS COUNTED 100; TOXIC GRANULATION SLIGHT; TOXIC VACUOLATION PRESENT
[2018-10-15 11:20] LABS: POIKILOCYTOSIS 1+; POLYCHROMASIA SLIGHT; TEAR DROP CELLS SLIGHT
[2018-10-15 11:22] LABS: PLATELET CLUMPS PRESENT; PLATELET COMMENT ADEQUATE
--- NOTE | 2018-10-15 12:41 | RADIOLOGY REPORT (SQ) ---
EXAM DESCRIPTION: CT ABD/PELVIS WITH IV ONLY COMPLETED DATE/TIME: 10/15/2018 12:14 pm REASON FOR STUDY: ? Enlarging liver mets/peritoneal caking? COMPARISON: 08/22/2018 TECHNIQUE: CT scan of the abdomen and pelvis performed using helical scanning technique with dynamic intravenous contrast injection. No oral contrast. Images reviewed with lung, soft tissue, and bone windows. Reconstructed coronal and sagittal MPR images reviewed. Delayed images for evaluation of the urinary system also acquired. All images stored on PACS. All CT scanners at this facility use dose modulation, iterative reconstruction, and/or weight based d osing when appropriate to reduce radiation dose to as low as reasonably achievable (ALARA). [facility]: Dose Right [facility]: CareDose [facility]: Dose Right [facility]: Teradose 4D [facility]: Silistix CONTRAST TYPE AND DOSE: contrast/concentration: Isovue 350.00 mg/ml; Total Contrast Delivered: 100.0 ml; Total Saline Delivered: 72.0 ml RENAL FUNCTION: BUN 21 creatinine 1.21 RADIATION DOSE: CT Rad equipment meets quality standard of care and radiation dose reduction techniq ues were employed. CTDIvol: 15.9 - 17.2 mGy. DLP: 1931 mGy-cm.. LIMITATIONS: None. FINDINGS: LOWER CHEST: There is somewhat of a ground-glass nodule posteriorly in the right lung on t he 1st image. This measures about 13 mm. LIVER: The liver is diffusely heterogeneous with multiple metastatic lesions. These are more promine nt than on the prior study. These appear to be more numerous as well. Hepatomegaly is present. SPLEEN: Normal size. No focal lesions. PANCREAS: No masses. No significant calcifications. No adjacent inflammation or peripancreatic fluid collections. Pancreatic duct not dilated. GALLBLADDER: No identified stones by CT criteria. No inflammatory changes to suggest cholecystitis. ADRENAL GLANDS: 2 cm left adrenal nodule is larger than on the prior study. RIGHT KIDNEY AND URETER: No solid masses. No significant calcifications. No hydronephrosis or hyd roureter. LEFT KIDNEY AND URETER: No solid masses. No significant calcifications. No hydronephrosis or hydr oureter. AORTA AND VESSELS: No aneurysm. No dissection. Renal arteries, SMA, celiac without stenosis. RETROPERITONEUM: No retroperitoneal adenopathy, hemorrhage or masses. BOWEL AND PERITONEAL CAVITY: No masses or inflammatory changes. There is a small amount of ascites, primarily around the liver and in the pelvis. APPENDIX: Not identified. PELVIS: Urinary bladder is normal. There is some free fluid. ABDOMINAL WALL: No masses. No hernias. BONES: There is internal fixation of a prior hip fracture. The femoral neck component extends to the articular surface of the femoral head. OTHER: No other significant finding. IMPRESSION: Hepatomegaly with increasing metastatic disease in the liver. The left adrenal nodule i s larger. Osseous findings as described. There is a 13 mm ground-glass nodule in the right lung pos teriorly. This is not included on the prior study. TECHNICAL DOCUMENTATION: JOB ID: [id number] Quality ID # [id number]: Final reports with documentation of one or more dose reduction techniques (e.g., Au tomated exposure control, adjustment of the mA and/or kV according to patient size, use of iterative reconstruction technique) 2010 [employer]- All Rights Reserved Reading location - IP/workstation name: [email or web address]
[2018-10-15] MEDS ORDERED: IPRATROPIUM/ALBUTEROL 0.5-2.5 MG/3 ML AMPUL NEB PRN (13:09)
[2018-10-15] MEDS ORDERED: ONDANSETRON HCL INJ/PF 4 MG/2 ML SDV IV PRN (13:09)
--- NOTE | 2018-10-15 13:09 | PDOC H&P ---
History of Present Illness Admission Date/PCP: 10/15/18 12:14 CHANTELLE ABDUL MD History of Present Illness: RITESH HOGAN JR is a 57 year old male patient who does not have si gnificant past medical history except for heavy smoking for about 30 years presented with chief complaint of intractable right upper quadrant pain. Of note patient diagnosed to his lung CA with metastasis to the liver in March 2018. Patient had been on chemotherapy. Currently he is taking radiation treatment. Patient has been on Duragesic patch 25 mics every 72 hours to no avail. Patient denies any chills fever palpitation or diaphoresis. No cough or chest pain. Initial blood work shows ammonia of 38.1 total bilirubin 8.8 direct 7.9, AST 406, ALT 85, alkaline phosphatase 341, sodium of 126 and creatinine of 1.1. CT of abdomen reported as hepatomegaly with increasing metastatic disease in the liver. The left adrenal nodule is larger osseous findings as described. There is a 13 mm groundglass nodule in the right lung posteriorly. Past Medical History Cardiac Medical History: Denies: Coronary Artery Disease, Myocardial Infarction, Hypertension Pulmonary Medical History: Reports: Bronchitis, Pneumonia - RECENT Denies: Asthma, Chronic Obstructive Pulmonary Disease (COPD) Neurological Medical History: Denies: Seizures Musculoskeltal Medical History: Reports: Arthritis - LEFT HIP Hematology: Reports: Anemia, Bleeding Tendencies Past Surgical History Past Surgical History: Reports: Orthopedic Surgery - L hip Social History Smoking Status: Former Smoker Drugs: None - Advance Directive Resuscitation Status: Do Not Resuscitate Family History Family History: Reviewed & Not Pertinent Parental Family History Reviewed: Yes Children Family History Reviewed: Yes Sibling(s) Family History Reviewed.: Yes Medication/Allergy Allergies/Adverse Reactions: No Known Allergies Allergy (Verified 08/22/18 12:00) Review of Systems Constitutional: ABSENT: chills, fever(s), headache(s), weight gain, weight loss Eyes: ABSENT: visual disturbances Ears: ABSENT: hearing changes Cardiovascular: ABSENT: chest pain, dyspnea on exertion, edema, orthropnea, palpitations Respiratory: ABSENT: cough, hemoptysis Gastrointestinal: PRESENT: abdominal pain, other - Abdominal distention Genitourinary: ABSENT: dysuria, hematuria Musculoskeletal: ABSENT: joint swelling Integumentary: ABSENT: rash, wounds Neurological: ABSENT: abnormal gait, abnormal speech, confusion, dizziness, f ocal weakness, syncope Psychiatric: ABSENT: anxiety, depression, homidical ideation, suicidal ideation Endocrine: ABSENT: cold intolerance, heat intolerance, polydipsia, polyuria Hematologic/Lymphatic: ABSENT: easy bleeding, easy bruising Physical Exam Vital Signs: Temp Pulse Resp BP Pulse Ox 97.6 F 83 19 129/71 H 98 10/15/18 09:38 10/15/18 09:38 10/15/18 12:36 10/15/18 12:36 10/15/18 12:36 Intake & Output 10/14/18 10/15/18 10/16/18 06:59 06:59 06:59 Intake Total 50 Balance 50 Weight 88.904 kg General appearance: PRESENT: mild distress Head exam: PRESENT: atraumatic, normocephalic Eye exam: PRESENT: scleral icterus Mouth exam: PRESENT: dry mucosa Neck exam: ABSENT: carotid bruit, JVD, lymphadenopathy, thyromegaly Respiratory exam: PRESENT: clear to auscultation john. ABSENT: rales, rhonchi, wheezes Cardiovascular exam: PRESENT: RRR. ABSENT: diastolic murmur, rubs, systolic murmur GI/Abdominal exam: PRESENT: organolmegaly - The liver is about 12 to 15 cm below the right costal margin. Neurological exam: PRESENT: alert, awake, oriented to time, oriented to situation Results Laboratory Results: 10/15/18 10:13 10/15/18 10:13 10/15/18 10/15/18 10/15/18 10:13 10:13 10:13 WBC 11.1 H RBC 2.84 L Hgb 11.4 L Hct 31.5 L MCV 111 H MCH 40.0 H MCHC 36.1 H RDW 22.8 H Plt Count 267 Seg Neutrophils % Not Reportable Lymphocytes % Not Reportable Monocytes % Not Reportable Eosinophils % Not Reportable Basophils % Not Reportable Absolute Neutrophils Not Reportable Absolute Lymphocytes Not Reportable Absolute Monocytes Not Reportable Absolute Eosinophils Not Reportable Absolute Basophils Not Reportable Sodium 126.3 L Potassium 4.9 Chloride 86 L Carbon Dioxide 26 Anion Gap 14 BUN 21 H Creatinine 1.21 Est GFR ( Amer) > 60 Est GFR (Non-Af Amer) > 60 Glucose 94 Lactic Acid 1.7 Calcium 9.3 Total Bilirubin 8.8 H AST 406 H ALT 85 H Alkaline Phosphatase 341 H Ammonia Total Protein 6.8 Albumin 3.3 L Blood Type Antibody Screen 10/15/18 10/15/18 10:13 10:13 WBC RBC Hgb Hct MCV MCH MCHC RDW Plt Count Seg Neutrophils % Lymphocytes % Monocytes % Eosinophils % Basophils % Absolute Neutrophils Absolute Lymphocytes Absolute Monocytes Absolute Eosinophils Absolute Basophils Sodium Potassium Chloride Carbon Dioxide Anion Gap BUN Creatinine Est GFR ( Amer) Est GFR (Non-Af Amer) Glucose Lactic Acid Calcium Total Bilirubin AST ALT Alkaline Phosphatase Ammonia 38.1 H Total Protein Albumin Blood Type O NEGATIVE Antibody Screen NEGATIVE Impressions: Abdomen/Pelvis CT 10/15/18 10:38 IMPRESSION: Hepatomegaly with increasing metastatic disease in the liver. The left adrenal nodule is larger. Osseous findings as described. There is a 13 mm ground-glass nodule in the right lung posteriorly. This is not included on the prior study. Assessment and Plan - Diagnosis (1) Obstructive jaundice due to cancer Is this a current diagnosis for this admission?: Yes Plan: At this point the prognosis is poor. I will continue supportive care. (2) Stage IV lung CA with met to liver Is this a current diagnosis for this admission?: Yes Plan: Patient got chemotherapy. His primary oncologist is Dr. Abdul. Currently the patient is getting radiation. (3) Acute kidney injury Is this a current diagnosis for this admission?: Yes Plan: This most probably due to poor oral intake. We will cautiously hydrate him. (4) Hyponatremia Is this a current diagnosis for this admission?: Yes Plan: We will replace his sodium and follow his renal function test. (5) Intractable abdominal pain Is this a current diagnosis for this admission?: Yes Plan: We will increase the dose of his fentanyl patch to 50 mics every 72 hours. I will start him on MS Contin 30 mg every 12 hours. We will give him also Dilaudid for breakthrough pain.
[2018-10-15] MEDS ORDERED: HYDROMORPHONE HCL INJ/PF 2 MG/ML AMPULE IV PRN ×3 (13:17→16:48)
--- NOTE | 2018-10-15 13:17 | RADIOLOGY REPORT (SQ) ---
EXAM DESCRIPTION: CHEST SINGLE VIEW COMPLETED DATE/TIME: 10/15/2018 1:00 pm REASON FOR STUDY: kassi MAYER COMPARISON: 08/22/2018 EXAM PARAMETERS: NUMBER OF VIEWS: One view. TECHNIQUE: Single frontal radiographic view of the chest acquired. RADIATION DOSE: NA LIMITATIONS: None. FINDINGS: LUNGS AND PLEURA: Chronic elevation right diaphragm. Known right hilar mass not significa ntly changed. No obvious superimposed pneumonia. MEDIASTINUM AND HILAR STRUCTURES: See above. HEART AND VASCULAR STRUCTURES: Heart normal in size. Normal vasculature. BONES: No acute findings. HARDWARE: None in the chest. OTHER: No other significant finding. IMPRESSION: Known right hilar mass. No significant change. TECHNICAL DOCUMENTATION: JOB ID: [id number] [employer]- All Rights Reserved Reading location - IP/workstation name: [email or web address]
[2018-10-15] MEDS: NORMAL SALINE 1000 ML 1,000 ML IV PRN (14:24)
[2018-10-15] MEDS: FENTANYL 50 MCG/HR PATCH.TD72 TD SCH (16:10)
[2018-10-15] MEDS: ENOXAPARIN SODIUM INJ 40 MG/0.4 ML DISP.SYRIN SUBCUT SCH (16:11)
--- NOTE | 2018-10-15 16:22 | ADVANCED CARE ---
- Diagnosis (1) Obstructive jaundice due to cancer Diagnosis Current: Yes (2) Stage IV lung CA with met to liver Diagnosis Current: Yes (3) Acute kidney injury Diagnosis Current: Yes (4) Hyponatremia Diagnosis Current: Yes (5) Intractable abdominal pain Diagnosis Current: Yes Resuscitation Status: Do Not Resuscitate Discussion: I have a long discussion with the patient and his sister regarding the progress of his illness. I have discussed the results CT in the left findings. Patient states clearly he does not want any aggressive measures including CPR or intubation if he is in an cardiorespiratory arrest. He is willing to have supportive measures including oxygen for respiratory distress, pain medication for pain and adequate nutrition. Care Planning Goals: DNR. Oxygen supplement. Pain management. Nutrition.
[2018-10-15] MEDS ORDERED: NALOXONE HCL INJ 2 MG/2 ML DISP.SYRIN IV PRN (16:36)
[2018-10-15] MEDS: THIAMINE HCL 100 MG, FOLIC ACID 1 MG in NORMAL SALINE 250 ML IV SCH (17:55)
[2018-10-15] MEDS: DOCUSATE SODIUM 100 MG/10 ML UDC PO SCH (17:55)
[2018-10-15] MEDS ORDERED: MORPHINE SULFATE SR 30 MG TABLET PO SCH ×2 (19:30→22:00)
[2018-10-15] MEDS: FAMOTIDINE 20 MG TABLET PO SCH (21:47)
[2018-10-15] MEDS: TEMAZEPAM 15 MG CAPSULE PO SCH (21:47)
[2018-10-16] MEDS: NORMAL SALINE 1000 ML 1,000 ML IV PRN ×3 (01:56→16:49)
[2018-10-16] MEDS: MORPHINE SULFATE SR 30 MG TABLET PO SCH ×2 (05:48→17:28)
[2018-10-16 06:16] LABS: HEMATOCRIT 30.8 % (37.9-51.0); HEMOGLOBIN 11.1 g/dL (13.5-17.0); MEAN CORPUSCULAR HEMOGLOBIN 39.8 pg (27.0-33.4); PLATELET COUNT 215 10^3/uL (150-450); RED BLOOD COUNT 2.78 10^6/uL (4.35-5.55); RED CELL DISTRIBUTION WIDTH 22.1 % (11.5-14.0); WHITE BLOOD COUNT 9.6 10^3/uL (4.0-10.5)
[2018-10-16 06:35] LABS: ALANINE AMINOTRANSFERASE 85 U/L (21-72); ALBUMIN 3.3 g/dL (3.5-5.0); ALKALINE PHOSPHATASE 316 U/L (38-126); ANION GAP 17 (5-19); ASPARTATE AMINO TRANSFERASE 512 U/L (17-59); BILIRUBIN,DIRECT 7.5 mg/dL (0.0-0.4); BILIRUBIN,TOTAL 8.4 mg/dL (0.2-1.3); BLOOD UREA NITROGEN 24 mg/dL (7-20); CALCIUM 9.2 mg/dL (8.4-10.2); CARBON DIOXIDE 21 mmol/L (22-30); CHLORIDE 89 mmol/L (98-107); GLUCOSE 84 mg/dL (75-110); POTASSIUM 5.4 mmol/L (3.6-5.0); SODIUM 126.7 mmol/L (137-145); TOTAL PROTEIN 6.8 g/dL (6.3-8.2)
[2018-10-16 06:50] LABS: ABSOLUTE LYMPHOCYTES# (MANUAL) 1.7 10^3/uL (0.5-4.7); ABSOLUTE MONOCYTES # (MANUAL) 1.8 10^3/uL (0.1-1.4); ABSOLUTE NEUTROPHILS# (MANUAL) 5.7 10^3/uL (1.7-8.2); ANISOCYTOSIS 3+; BAND NEUTROPHILS % (MANUAL) 3 % (3-5); BASOPHILS % (MANUAL) 0 % (0-2); EOSINOPHILS % (MANUAL) 4 % (0-6); HYPOCHROMASIA SLIGHT; LYMPHOCYTES % (MANUAL) 14 % (13-45); MONOCYTES % (MANUAL) 19 % (3-13); SEGMENTED NEUTROPHILS % (MAN) 56 % (42-78); STOMATOCYTES 4+; TOTAL CELLS COUNTED 100
[2018-10-16 06:51] LABS: PLATELET COMMENT ADEQUATE; TARGET CELLS 1+
[2018-10-16 06:52] LABS: MEAN CORPUSCULAR VOLUME 111 fl (80-97)
[2018-10-16] MEDS: HYDROMORPHONE HCL INJ/PF 2 MG/ML AMPULE IV PRN ×5 (08:50→22:27)
[2018-10-16] MEDS: ENOXAPARIN SODIUM INJ 40 MG/0.4 ML DISP.SYRIN SUBCUT SCH (10:14)
[2018-10-16] MEDS: DOCUSATE SODIUM 100 MG/10 ML UDC PO SCH ×2 (10:14→17:33)
[2018-10-16] MEDS: FAMOTIDINE 20 MG TABLET PO SCH ×2 (10:14→22:25)
[2018-10-16 11:48] LABS: MEAN CORPUSCULAR VOLUME 111 fl (80-97)
[2018-10-16 13:21] LABS: PATH REVIEW PATHOLOGIST REVIEWED
--- NOTE | 2018-10-16 13:48 | PDOC PROGRESS REPORT ---
Subjective Progress Note for:: 10/16/18 Subjective:: This is a 57 year old male patient who does not have significant past medical history of Stage 4 lung CA with multiple metastases to the liver who was getting palliative radiation who presented with worsening RUQ pain and elevated liver enzymes. CT shows progression of metastatic disease. Patient has been requiring pain meds. Patient is deemed hospice-appropriate. Updated Dr. Downs who has the same recommendation. This morning, he was having breakthrough RUQ pain. Discussed with patient and he was initially receptive to transitioning to hospice. Later this morning, he verbalized he wants to pursue and continue radiation and chemotherapy. Discussed in length that he will not benefit from this. He says he wants another opinion and insist on pursuing such treatments. Family including his sister (surrogate decision maker) are on bedside and express they will discuss this with patient and the family. Reason For Visit: OBSTRUCTIVE JAUNDICE,INTRACTABLE ABDOMINAL PAIN Physical Exam Vital Signs: Temp Pulse Resp BP Pulse Ox 97.5 F 87 18 116/60 96 10/16/18 11:41 10/16/18 11:41 10/16/18 11:41 10/16/18 11:41 10/16/18 11:41 Intake & Output 10/15/18 10/16/18 10/17/18 06:59 06:59 06:59 Intake Total 1971.2 867 Output Total 650 Balance 1321.2 867 Weight 199 lb 4.766 oz General appearance: PRESENT: mild distress, well-developed, well-nourished Head exam: PRESENT: atraumatic, normocephalic Eye exam: PRESENT: conjunctiva pink, EOMI, PERRLA. ABSENT: scleral icterus Ear exam: PRESENT: normal external ear exam Mouth exam: PRESENT: moist, tongue midline Neck exam: ABSENT: carotid bruit, JVD, lymphadenopathy, thyromegaly Respiratory exam: PRESENT: clear to auscultation john. ABSENT: rales, rhonchi, wheezes Cardiovascular exam: PRESENT: RRR. ABSENT: diastolic murmur, rubs, systolic murmur Pulses: PRESENT: normal dorsalis pedis pul GI/Abdominal exam: PRESENT: distended, normal bowel sounds, soft, tenderness. ABSENT: guarding, mass, organolmegaly, rebound Rectal exam: PRESENT: deferred Extremities exam: PRESENT: full ROM. ABSENT: calf tenderness, clubbing, pedal edema Neurological exam: PRESENT: alert, awake, oriented to person, oriented to place, oriented to time, oriented to situation, CN II-XII grossly intact. ABSENT: motor sensory deficit Results Laboratory Results: 10/16/18 05:40 10/16/18 05:40 10/15/18 10/16/18 10/16/18 10:13 05:40 05:40 WBC 9.6 RBC 2.78 L Hgb 11.1 L Hct 30.8 L MCV 111 H 111 H MCH 39.8 H MCHC 36.0 RDW 22.1 H Plt Count 215 Seg Neutrophils % Not Reportable Lymphocytes % Not Reportable Monocytes % Not Reportable Eosinophils % Not Reportable Basophils % Not Reportable Absolute Neutrophils Not Reportable Absolute Lymphocytes Not Reportable Absolute Monocytes Not Reportable Absolute Eosinophils Not Reportable Absolute Basophils Not Reportable Sodium 126.7 L Potassium 5.4 H Chloride 89 L Carbon Dioxide 21 L Anion Gap 17 BUN 24 H Creatinine 1.25 Est GFR ( Amer) > 60 Est GFR (Non-Af Amer) 59 L Glucose 84 Calcium 9.2 Total Bilirubin 8.4 H AST 512 H ALT 85 H Alkaline Phosphatase 316 H Ammonia Total Protein 6.8 Albumin 3.3 L 10/16/18 05:40 WBC RBC Hgb Hct MCV MCH MCHC RDW Plt Count Seg Neutrophils % Lymphocytes % Monocytes % Eosinophils % Basophils % Absolute Neutrophils Absolute Lymphocytes Absolute Monocytes Absolute Eosinophils Absolute Basophils Sodium Potassium Chloride Carbon Dioxide Anion Gap BUN Creatinine Est GFR ( Amer) Est GFR (Non-Af Amer) Glucose Calcium Total Bilirubin AST ALT Alkaline Phosphatase Ammonia 27.3 Total Protein Albumin Impressions: Abdomen/Pelvis CT 10/15/18 10:38 IMPRESSION: Hepatomegaly with increasing metastatic disease in the liver. The left adrenal nodule is larger. Osseous findings as described. There is a 13 mm ground-glass nodule in the right lung posteriorly. This is not included on the prior study. Chest X-Ray 10/15/18 12:13 IMPRESSION: Known right hilar mass. No significant change. Assessment and Plan - Diagnosis (1) Intractable abdominal pain Is this a current diagnosis for this admission?: Yes Plan: Secondary to progression of liver metastases. CT shows increase in number and size of hepatic mets. Dilaudid increased. Continue fentanyl patch and oxy. (2) Stage IV lung CA with met to liver Is this a current diagnosis for this admission?: Yes Plan: Patient has been requiring pain meds. Patient is deemed hospice-appropriate. Updated Dr. Downs who has the same recommendation. This morning, he was having breakthrough RUQ pain. Discussed with patient and he was initially receptive to transitioning to hospice. Later this morning, he verbalized he wants to pursue and continue radiation and chemotherapy. Discussed in length that he will not b enefit from this. He says he wants another opinion and insist on pursuing such treatments. Family including his sister (surrogate decision maker) are on bedside and express they will discuss this with patient and the family. (3) Obstructive jaundice due to cancer Is this a current diagnosis for this admission?: Yes Plan: As per number 1. (4) Hepatomegaly Is this a current diagnosis for this admission?: Yes Plan: As per number 1. - Time Time Spent with patient: 25-34 minutes
[2018-10-16] MEDS: THIAMINE HCL 100 MG, FOLIC ACID 1 MG in NORMAL SALINE 250 ML IV SCH (17:29)
[2018-10-16] MEDS: TEMAZEPAM 15 MG CAPSULE PO SCH (22:25)
--- NOTE | 2018-10-16 23:09 | CONSULTATION REPORT E ---
Consultation Report NAME: RITESH HOGAN JR : 1960 AGE: 57Y DATE: 10/16/2018 302 A TO: CHANTELLE ABDUL M.D. FROM: SHANELLE MARTINEZ M.D. Requesting Physician DIAGNOSIS: Metastatic neuroendocrine cancer, possibly lung primary. HISTORY OF PRESENT ILLNESS: The patient is a 57-year-old man who was diagnosed neuroendocrine cancer from a liver biopsy. He also had a PET scan that had shown a right hilar mass suggestive of lung primary. He was started on chemotherapy with irinotecan and carboplatin shortly after his diagnosis, April 2018. He received a total of 7 cycles. His last treatment was given 08/26/2018. He unfortunately had scans that showed progression of his lung mass. I reviewed the scans with him and his sister at that time and recommended possible radiation to his lung lesion and also to start him on immunotherapy using IPI and NIVO. He has received a dose of Opdivo 09/17/2018. He was started on radiation. Unfortunately his symptoms continued to worsen with progression of his cancer in the liver. He is also having increasing abdominal pains. He was admitted into the hospital and he is currently on IV pain medications. His pain is a lot better today. I discussed with him his overall prognosis. Once again I explained that he has a terminal cancer and he is not showing response to chemotherapy or immunotherapy. RECOMMENDATIONS: I recommend hospice at this time. He is agreeable and he should be referred to hospice. I thank you for this consultation and allowing me to part of his care. DICTATING PHYSICIAN: CHANTELLE ABDUL M.D. [id number] PHY#: [id number] ID: [id number] JOB#: [id number] ACCT: [id number] cc:CHANTELLE ABDUL M.D. >
[2018-10-17] MEDS: HYDROMORPHONE HCL INJ/PF 2 MG/ML AMPULE IV PRN ×7 (03:03→21:31)
[2018-10-17] MEDS: MORPHINE SULFATE SR 30 MG TABLET PO SCH ×2 (05:42→17:45)
[2018-10-17] MEDS: NORMAL SALINE 1000 ML 1,000 ML IV PRN ×2 (05:43→16:03)
[2018-10-17] MEDS: THIAMINE HCL 100 MG TABLET PO SCH (11:38)
[2018-10-17] MEDS: FOLIC ACID 1 MG TABLET PO SCH (11:38)
[2018-10-17] MEDS: FAMOTIDINE 20 MG TABLET PO SCH ×2 (11:38→21:55)
[2018-10-17] MEDS: DOCUSATE SODIUM 100 MG/10 ML UDC PO SCH ×2 (11:39→17:45)
[2018-10-17] MEDS: ENOXAPARIN SODIUM INJ 40 MG/0.4 ML DISP.SYRIN SUBCUT SCH (11:43)
[2018-10-17 13:53] LABS: PATH REVIEW PATHOLOGIST REVIEWED
--- NOTE | 2018-10-17 14:23 | PDOC PROGRESS REPORT ---
Subjective Progress Note for:: 10/17/18 Subjective:: This is a 57 year old male patient who does not have significant past medical history of Stage 4 lung CA with multiple metastases to the liver who was getting palliative radiation who presented with worsening RUQ pain and elevated liver enzymes. CT shows progression of metastatic disease. 10/16: Patient has been requiring pain meds. Patient is deemed hospice- appropriate. Updated Dr. Downs who has the same recommendation. This morning, he was having breakthrough RUQ pain. Discussed with patient and he was initially receptive to transitioning to hospice. Later this morning, he verbalized he wants to pursue and continue radiation and chemotherapy. Discussed in length that he will not benefit from this. He says he wants another opinion and insist on pursuing such treatments. Family including his sister (surrogate decision maker) are on bedside and express they will discuss this with patient and the family. 10/17: No acute event overnight. This morning, he appears comfortable. Pain is well controlled. Oncology has talked to him and his family. He is now amenable to proceeding with hospice but prefers his sister to be here when they talk to hospice team. Reason For Visit: OBSTRUCTIVE JAUNDICE,INTRACTABLE ABDOMINAL PAIN Physical Exam Vital Signs: Temp Pulse Resp BP Pulse Ox 97.3 F 82 16 117/61 98 10/17/18 11:03 10/17/18 11:03 10/17/18 11:03 10/17/18 11:03 10/17/18 11:03 Intake & Output 10/16/18 10/17/18 10/18/18 06:59 06:59 06:59 Intake Total 1971.2 4958.2 534 Output Total 650 1180 400 Balance 1321.2 3778.2 134 Weight 199 lb 4.766 oz 207 lb 3.752 oz General appearance: PRESENT: no acute distress, well-developed, well-nourished Head exam: PRESENT: atraumatic, normocephalic Eye exam: PRESENT: conjunctiva pink, EOMI, PERRLA, scleral icterus Ear exam: PRESENT: normal external ear exam Mouth exam: PRESENT: moist, tongue midline Neck exam: ABSENT: carotid bruit, JVD, lymphadenopathy, thyromegaly Respiratory exam: PRESENT: clear to auscultation john. ABSENT: rales, rhonchi, wheezes Cardiovascular exam: PRESENT: RRR. ABSENT: diastolic murmur, rubs, systolic murmur Pulses: PRESENT: normal dorsalis pedis pul GI/Abdominal exam: PRESENT: distended, organolmegaly. ABSENT: tenderness Rectal exam: PRESENT: deferred Neurological exam: PRESENT: alert, awake, oriented to person, oriented to place, oriented to time, oriented to situation, CN II-XII grossly intact. ABSENT: motor sensory deficit Results Laboratory Results: 10/16/18 05:40 10/16/18 05:40 Impressions: Abdomen/Pelvis CT 10/15/18 10:38 IMPRESSION: Hepatomegaly with increasing metastatic disease in the liver. The left adrenal nodule is larger. Osseous findings as described. There is a 13 mm ground-glass nodule in the right lung posteriorly. This is not included on the prior study. Chest X-Ray 10/15/18 12:13 IMPRESSION: Known right hilar mass. No significant change. Assessment and Plan - Diagnosis (1) Stage IV lung CA with met to liver Is this a current diagnosis for this admission?: Yes Plan: 10/16: Patient has been requiring pain meds. Patient is deemed hospice- appropriate. Updated Dr. Downs who has the same recommendation. This morning, he was having breakthrough RUQ pain. Discussed with patient and he was initially receptive to transitioning to hospice. Later this morning, he verbalized he wants to pursue and continue radiation and chemotherapy. Discussed in length that he will not benefit from this. He says he wants another opinion and insist on pursuing such treatments. Family including his sister (surrogate decision maker) are on bedside and express they will discuss this with patient and the family. 10/17: Oncology has talked to him and his family. He is now amenable to proceeding with hospice but prefers his sister to be here when they talk to hospice team. (2) Intractable abdominal pain Is this a current diagnosis for this admission?: Yes Plan: Secondary to progression of liver metastases. CT shows increase in number and size of hepatic mets. Dilaudid increased. Continue fentanyl patch and oxy. 10/17: Pain is well controlled with current regimen. (3) Obstructive jaundice due to cancer Is this a current diagnosis for this admission?: Yes Plan: As per number 1. (4) Hepatomegaly Is this a current diagnosis for this admission?: Yes Plan: As per number 1. (5) Acute kidney injury Is this a current diagnosis for this admission?: Yes Plan: Continue IV fluids. - Time Time Spent with patient: 15-24 minutes
[2018-10-17] MEDS: TEMAZEPAM 15 MG CAPSULE PO SCH (21:55)
[2018-10-18] MEDS: HYDROMORPHONE HCL INJ/PF 2 MG/ML AMPULE IV PRN ×3 (01:58→23:15)
[2018-10-18] MEDS: MORPHINE SULFATE SR 30 MG TABLET PO SCH ×2 (05:45→17:11)
[2018-10-18] MEDS: NORMAL SALINE 1000 ML 1,000 ML IV PRN ×3 (05:47→22:36)
[2018-10-18] MEDS: FENTANYL 50 MCG/HR PATCH.TD72 TD SCH (09:50)
[2018-10-18] MEDS: FAMOTIDINE 20 MG TABLET PO SCH ×2 (09:50→22:34)
[2018-10-18] MEDS: DOCUSATE SODIUM 100 MG/10 ML UDC PO SCH ×2 (09:52→17:09)
[2018-10-18] MEDS: FOLIC ACID 1 MG TABLET PO SCH (09:52)
[2018-10-18] MEDS: THIAMINE HCL 100 MG TABLET PO SCH (09:52)
[2018-10-18] MEDS: ENOXAPARIN SODIUM INJ 40 MG/0.4 ML DISP.SYRIN SUBCUT SCH (09:53)
--- NOTE | 2018-10-18 14:26 | PDOC PROGRESS REPORT ---
Subjective Progress Note for:: 10/18/18 Subjective:: RITESH HOGAN JR is a 57 year old male patient who does not have significant past medical history except for heavy smoking for about 30 years presented with chief complaint of intractable right upper quadrant pain. Patient is a known case of stage IV lung CA with metastasis to the liver. His CT scan shows massive hepatomegaly with multiple metastatic lesions. Currently patient is DNR and accepted hospice care. Soon as bed is available patient will be transferred to longterm for hospice care. Reason For Visit: OBSTRUCTIVE JAUNDICE,INTRACTABLE ABDOMINAL PAIN Physical Exam Vital Signs: Temp Pulse Resp BP Pulse Ox 97.6 F 88 16 116/61 86 L 10/18/18 07:34 10/18/18 07:34 10/18/18 07:34 10/18/18 07:34 10/18/18 07:34 Intake & Output 10/17/18 10/18/18 10/19/18 06:59 06:59 06:59 Intake Total 4958.2 2834 Output Total 1180 600 Balance 3778.2 2234 Weight 94 kg 92.6 kg General appearance: PRESENT: no acute distress Head exam: PRESENT: atraumatic Eye exam: PRESENT: conjunctiva pink Neck exam: ABSENT: carotid bruit, JVD, lymphadenopathy, thyromegaly Respiratory exam: PRESENT: clear to auscultation john. ABSENT: rales, rhonchi, wheezes Cardiovascular exam: PRESENT: RRR. ABSENT: diastolic murmur, rubs, systolic murmur GI/Abdominal exam: PRESENT: tenderness - Abdominal distention and hepatomegaly about 12 to 15 cm below the right costal margin. Neurological exam: PRESENT: alert, altered Results Laboratory Results: 10/16/18 05:40 10/16/18 05:40 Impressions: Abdomen/Pelvis CT 10/15/18 10:38 IMPRESSION: Hepatomegaly with increasing metastatic disease in the liver. The left adrenal nodule is larger. Osseous findings as described. There is a 13 mm ground-glass nodule in the right lung posteriorly. This is not included on the prior study. Chest X-Ray 10/15/18 12:13 IMPRESSION: Known right hilar mass. No significant change. Assessment and Plan - Diagnosis (1) Obstructive jaundice due to cancer Is this a current diagnosis for this admission?: Yes Plan: As per number 1. (2) Stage IV lung CA with met to liver Is this a current diagnosis for this admission?: Yes Plan: 10/16: Patient has been requiring pain meds. Patient is deemed hospice- appropriate. Updated Dr. Downs who has the same recommendation. This morning, he was having breakthrough RUQ pain. Discussed with patient and he was initially receptive to transitioning to hospice. Later this morning, he verbalized he wants to pursue and continue radiation and chemotherapy. Discussed in length that he will not benefit from this. He says he wants another opinion and insist on pursuing such treatments. Family including his sister (surrogate decision maker) are on bedside and express they will discuss this with patient and the family. 10/17: Oncology has talked to him and his family. He is now amenable to proceeding with hospice but prefers his sister to be here when they talk to hospice team. (3) Acute kidney injury Is this a current diagnosis for this admission?: Yes Plan: This most probably due to poor oral intake. We will cautiously hydrate him. (4) Hyponatremia Is this a current diagnosis for this admission?: Yes Plan: Improving. (5) Intractable abdominal pain Is this a current diagnosis for this admission?: Yes Plan: Continue current regimen.
[2018-10-18] MEDS ORDERED: LORAZEPAM INJ 2 MG/1 ML VIAL ONE (14:30)
[2018-10-18] MEDS: TEMAZEPAM 15 MG CAPSULE PO SCH (22:35)
[2018-10-19] MEDS: HYDROMORPHONE HCL INJ/PF 2 MG/ML AMPULE IV PRN ×5 (02:39→23:35)
[2018-10-19] MEDS: MORPHINE SULFATE SR 30 MG TABLET PO SCH ×2 (05:51→17:17)
[2018-10-19] MEDS: NORMAL SALINE 1000 ML 1,000 ML IV PRN ×3 (09:05→23:36)
[2018-10-19] MEDS: DOCUSATE SODIUM 100 MG/10 ML UDC PO SCH ×2 (10:00→17:19)
[2018-10-19] MEDS: FOLIC ACID 1 MG TABLET PO SCH (10:46)
[2018-10-19] MEDS: FAMOTIDINE 20 MG TABLET PO SCH ×2 (10:46→23:36)
[2018-10-19] MEDS: ENOXAPARIN SODIUM INJ 40 MG/0.4 ML DISP.SYRIN SUBCUT SCH (10:47)
[2018-10-19] MEDS: THIAMINE HCL 100 MG TABLET PO SCH (10:47)
--- NOTE | 2018-10-19 13:59 | PDOC PROGRESS REPORT ---
Subjective Progress Note for:: 10/19/18 Subjective:: I seen patient propped up in bed. He complains of still right upper quadrant pain. Short while ago he was given IV Dilaudid. I will increase the dose of his fentanyl patch. Reason For Visit: OBSTRUCTIVE JAUNDICE,INTRACTABLE ABDOMINAL PAIN Physical Exam Vital Signs: Temp Pulse Resp BP Pulse Ox 98.1 F 93 16 119/64 94 10/19/18 12:36 10/19/18 12:36 10/19/18 12:36 10/19/18 12:36 10/19/18 12:36 Intake & Output 10/18/18 10/19/18 10/20/18 06:59 06:59 06:59 Intake Total 2834 3193 Output Total 600 100 Balance 2234 3093 Weight 92.6 kg 92.5 kg General appearance: PRESENT: mild distress Mouth exam: PRESENT: dry mucosa Neck exam: ABSENT: carotid bruit, JVD, lymphadenopathy, thyromegaly Cardiovascular exam: PRESENT: RRR. ABSENT: diastolic murmur, rubs, systolic murmur Neurological exam: PRESENT: alert, awake Results Laboratory Results: 10/16/18 05:40 10/16/18 05:40 Impressions: Abdomen/Pelvis CT 10/15/18 10:38 IMPRESSION: Hepatomegaly with increasing metastatic disease in the liver. The left adrenal nodule is larger. Osseous findings as described. There is a 13 mm ground-glass nodule in the right lung posteriorly. This is not included on the prior study. Chest X-Ray 10/15/18 12:13 IMPRESSION: Known right hilar mass. No significant change. Assessment and Plan - Diagnosis (1) Obstructive jaundice due to cancer Is this a current diagnosis for this admission?: Yes Plan: As per number 1. (2) Stage IV lung CA with met to liver Is this a current diagnosis for this admission?: Yes Plan: 10/16: Patient has been requiring pain meds. Patient is deemed hospice- appropriate. Updated Dr. Downs who has the same recommendation. This morning, he was having breakthrough RUQ pain. Discussed with patient and he was initially receptive to transitioning to hospice. Later this morning, he verbalized he wants to pursue and continue radiation and chemotherapy. Discussed in length that he will not benefit from this. He says he wants another opinion and insist on pursuing such treatments. Family including his sister (surrogate decision maker) are on bedside and express they will discuss this with patient and the family. 10/17: Oncology has talked to him and his family. He is now amenable to proceeding with hospice but prefers his sister to be here when they talk to hospice team. (3) Acute kidney injury Is this a current diagnosis for this admission?: Yes Plan: This most probably due to poor oral intake. We will cautiously hydrate him. (4) Hyponatremia Is this a current diagnosis for this admission?: Yes Plan: Improving. (5) Intractable abdominal pain Is this a current diagnosis for this admission?: Yes Plan: Continue current regimen.
[2018-10-19] MEDS: LORAZEPAM INJ 2 MG/1 ML VIAL IV PRN (17:59)
[2018-10-19] MEDS: TEMAZEPAM 15 MG CAPSULE PO SCH (23:35)
[2018-10-20] MEDS: MORPHINE SULFATE SR 30 MG TABLET PO SCH ×2 (05:39→17:12)
[2018-10-20] MEDS: HYDROMORPHONE HCL INJ/PF 2 MG/ML AMPULE IV PRN ×6 (05:39→22:11)
[2018-10-20] MEDS: LORAZEPAM INJ 2 MG/1 ML VIAL IV PRN ×2 (07:46→12:36)
[2018-10-20] MEDS: NORMAL SALINE 1000 ML 1,000 ML IV PRN ×2 (07:48→14:11)
[2018-10-20] MEDS: DOCUSATE SODIUM 100 MG/10 ML UDC PO SCH ×2 (09:43→17:12)
[2018-10-20] MEDS: FOLIC ACID 1 MG TABLET PO SCH (09:44)
[2018-10-20] MEDS: FAMOTIDINE 20 MG TABLET PO SCH ×2 (09:44→21:21)
[2018-10-20] MEDS: THIAMINE HCL 100 MG TABLET PO SCH (09:44)
[2018-10-20] MEDS: ENOXAPARIN SODIUM INJ 40 MG/0.4 ML DISP.SYRIN SUBCUT SCH (09:46)
--- NOTE | 2018-10-20 12:06 | PDOC PROGRESS REPORT ---
Subjective Progress Note for:: 10/20/18 Subjective:: Patient sedated with Ativan. No significant change overnight. Potentially he will be transferred to [facility], [place] tomorrow. Reason For Visit: OBSTRUCTIVE JAUNDICE,INTRACTABLE ABDOMINAL PAIN Physical Exam Vital Signs: Temp Pulse Resp BP Pulse Ox 97.5 F 94 20 127/56 H 93 10/20/18 07:25 10/20/18 07:25 10/20/18 07:25 10/20/18 07:25 10/20/18 07:25 Intake & Output 10/19/18 10/20/18 10/21/18 06:59 06:59 06:59 Intake Total 3193 2115 1000 Output Total 100 Balance 3093 2115 1000 Weight 92.5 kg 93.2 kg Results Laboratory Results: 10/16/18 05:40 10/16/18 05:40 Impressions: Abdomen/Pelvis CT 10/15/18 10:38 IMPRESSION: Hepatomegaly with increasing metastatic disease in the liver. The left adrenal nodule is larger. Osseous findings as described. There is a 13 mm ground-glass nodule in the right lung posteriorly. This is not included on the prior study. Chest X-Ray 10/15/18 12:13 IMPRESSION: Known right hilar mass. No significant change. Assessment and Plan - Diagnosis (1) Obstructive jaundice due to cancer Is this a current diagnosis for this admission?: Yes Plan: As per number 1. (2) Stage IV lung CA with met to liver Is this a current diagnosis for this admission?: Yes Plan: 10/16: Patient has been requiring pain meds. Patient is deemed hospice- appropriate. Updated Dr. Downs who has the same recommendation. This morning, he was having breakthrough RUQ pain. Discussed with patient and he was initially receptive to transitioning to hospice. Later this morning, he verbalized he wants to pursue and continue radiation and chemotherapy. Discussed in length that he will not benefit from this. He says he wants another opinion and insist on pursuing such treatments. Family including his sister (surrogate decision maker) are on bedside and express they will discuss this with patient and the family. 10/17: Oncology has talked to him and his family. He is now amenable to proceeding with hospice but prefers his sister to be here when they talk to hospice team. (3) Acute kidney injury Is this a current diagnosis for this admission?: Yes Plan: This most probably due to poor oral intake. We will cautiously hydrate him. (4) Hyponatremia Is this a current diagnosis for this admission?: Yes Plan: Improving. (5) Intractable abdominal pain Is this a current diagnosis for this admission?: Yes Plan: Continue current regimen.
[2018-10-20] MEDS ORDERED: FUROSEMIDE INJ/PF 40 MG/4 ML SDV IV ONE (17:15)
[2018-10-20] MEDS: TEMAZEPAM 15 MG CAPSULE PO SCH (21:21)
[2018-10-21] MEDS: LORAZEPAM INJ 2 MG/1 ML VIAL IV PRN (00:38)
[2018-10-21] MEDS: HYDROMORPHONE HCL INJ/PF 2 MG/ML AMPULE IV PRN ×7 (00:38→21:30)
[2018-10-21] MEDS: ONDANSETRON HCL INJ/PF 4 MG/2 ML SDV IV PRN ×2 (02:38→06:42)
[2018-10-21] MEDS: MORPHINE SULFATE SR 30 MG TABLET PO SCH ×2 (05:24→17:00)
[2018-10-21] MEDS: FOLIC ACID 1 MG TABLET PO SCH (09:37)
[2018-10-21] MEDS: FAMOTIDINE 20 MG TABLET PO SCH ×2 (09:37→21:02)
[2018-10-21] MEDS: DOCUSATE SODIUM 100 MG/10 ML UDC PO SCH (09:37)
[2018-10-21] MEDS: FENTANYL 50 MCG/HR PATCH.TD72 TD SCH (09:38)
[2018-10-21] MEDS: ENOXAPARIN SODIUM INJ 40 MG/0.4 ML DISP.SYRIN SUBCUT SCH (09:49)
[2018-10-21] MEDS: THIAMINE HCL 100 MG TABLET PO SCH (09:50)
[2018-10-21 12:04] VITALS: BP 119/53
--- NOTE | 2018-10-21 13:51 | PDOC PROGRESS REPORT ---
Subjective Progress Note for:: 10/21/18 Subjective:: RITESH HOGAN JR is a 57 year old male patient who does not have significant past medical history except for heavy smoking for about 30 years presented with chief complaint of intractable right upper quadrant pain. Patient is a known case of stage IV lung CA with metastasis to the liver. His CT scan shows massive hepatomegaly with multiple metastatic lesions. Currently patient is DNR and accepted hospice care. Soon as bed is available patient will be transferred to [facility] for hospice care. I discussed the case with his sister who is the POA and she requested his comfort care only. Reason For Visit: OBSTRUCTIVE JAUNDICE,INTRACTABLE ABDOMINAL PAIN Physical Exam Vital Signs: Temp Pulse Resp BP Pulse Ox 98.6 F 105 H 24 H 119/53 L 92 10/21/18 11:32 10/21/18 11:32 10/21/18 11:32 10/21/18 11:32 10/21/18 11:32 Intake & Output 10/20/18 10/21/18 10/22/18 06:59 06:59 06:59 Intake Total 2115 2133 Balance 2115 2133 Weight 93.2 kg 93.5 kg Results Laboratory Results: 10/16/18 05:40 10/16/18 05:40 Impressions: Abdomen/Pelvis CT 10/15/18 10:38 IMPRESSION: Hepatomegaly with increasing metastatic disease in the liver. The left adrenal nodule is larger. Osseous findings as described. There is a 13 mm ground-glass nodule in the right lung posteriorly. This is not included on the prior study. Chest X-Ray 10/15/18 12:13 IMPRESSION: Known right hilar mass. No significant change. Assessment and Plan - Diagnosis (1) Obstructive jaundice due to cancer Is this a current diagnosis for this admission?: Yes Plan: Comfort care (2) Stage IV lung CA with met to liver Is this a current diagnosis for this admission?: Yes Plan: 10/16: Patient has been requiring pain meds. Patient is deemed hospice- appropriate. Updated Dr. Downs who has the same recommendation. This morning, he was having breakthrough RUQ pain. Discussed with patient and he was initially receptive to transitioning to hospice. Later this morning, he verbalized he wan ts to pursue and continue radiation and chemotherapy. Discussed in length that he will not benefit from this. He says he wants another opinion and insist on pursuing such treatments. Family including his sister (surrogate decision maker) are on bedside and express they will discuss this with patient and the family. 10/17: Oncology has talked to him and his family. He is now amenable to proceeding with hospice but prefers his sister to be here when they talk to hospice team. (3) Acute kidney injury Is this a current diagnosis for this admission?: Yes Plan: Comfort care (4) Hyponatremia Is this a current diagnosis for this admission?: Yes (5) Intractable abdominal pain Is this a current diagnosis for this admission?: Yes
[2018-10-21] MEDS: DOCUSATE SODIUM 100 MG CAPSULE PO SCH (17:00)
[2018-10-21] MEDS: TEMAZEPAM 15 MG CAPSULE PO SCH (21:02)
[2018-10-22] MEDS: HYDROMORPHONE HCL INJ/PF 2 MG/ML AMPULE IV PRN ×6 (02:04→20:54)
[2018-10-22] MEDS: MORPHINE SULFATE SR 30 MG TABLET PO SCH ×2 (05:43→17:44)
[2018-10-22] MEDS: THIAMINE HCL 100 MG TABLET PO SCH (09:30)
[2018-10-22] MEDS: DOCUSATE SODIUM 100 MG CAPSULE PO SCH ×2 (09:30→17:43)
[2018-10-22] MEDS: FAMOTIDINE 20 MG TABLET PO SCH (09:30)
[2018-10-22] MEDS: LORAZEPAM INJ 2 MG/1 ML VIAL IV PRN (11:12)
--- NOTE | 2018-10-22 15:59 | PDOC PROGRESS REPORT ---
Subjective Progress Note for:: 10/22/18 Subjective:: No adverse events overnight. Patient remains on comfort measures. Continues to rest comfortably. Reason For Visit: OBSTRUCTIVE JAUNDICE,INTRACTABLE ABDOMINAL PAIN Physical Exam Vital Signs: Temp Pulse Resp BP Pulse Ox 98.6 F 105 H 24 H 119/53 L 92 10/21/18 11:32 10/21/18 11:32 10/21/18 11:32 10/21/18 11:32 10/21/18 11:32 Intake & Output 10/21/18 10/22/18 10/23/18 06:59 06:59 06:59 Intake Total 2133 0 0 Output Total 750 350 Balance 2133 -750 -350 Weight 93.5 kg General appearance: PRESENT: no acute distress, disheveled, other - Currently sedated after receiving some pain medication Results Laboratory Results: 10/16/18 05:40 10/16/18 05:40 Impressions: Abdomen/Pelvis CT 10/15/18 10:38 IMPRESSION: Hepatomegaly with increasing metastatic disease in the liver. The left adrenal nodule is larger. Osseous findings as described. There is a 13 mm ground-glass nodule in the right lung posteriorly. This is not included on the prior study. Chest X-Ray 10/15/18 12:13 IMPRESSION: Known right hilar mass. No significant change. Assessment and Plan - Diagnosis (1) Obstructive jaundice due to cancer Is this a current diagnosis for this admission?: Yes Plan: Currently on comfort measures. Inpatient hospice is pending. We manage him expectantly. (2) Stage IV lung CA with met to liver Is this a current diagnosis for this admission?: Yes Plan: Currently on comfort measures (3) Acute kidney injury Is this a current diagnosis for this admission?: Yes Plan: Currently on comfort measures - Time Time Spent with patient: Less than 15 minutes
[2018-10-23] MEDS: LORAZEPAM INJ 2 MG/1 ML VIAL IV PRN (01:51)
[2018-10-23] MEDS: FAMOTIDINE 20 MG TABLET PO SCH (01:53)
[2018-10-23] MEDS: HYDROMORPHONE HCL INJ/PF 2 MG/ML AMPULE IV PRN ×2 (01:59→04:03)
[2018-10-23] MEDS ORDERED: SCOPOLAMINE HYDROBROMIDE 1.5 MG PATCH.TD72 TD ONE (02:45)
--- NOTE | 2018-10-23 04:42 | Death Summary ---
Summary Date : 10/23/18 Time of :: 04:09 Autopsy: No Resuscitation Status: Comfort Measures Only Primary Care Provider: CHANTELLE ABDUL - Final Diagnosis (1) Intractable abdominal pain Is this a current diagnosis for this admission?: Yes (2) Stage IV lung CA with met to liver Is this a current diagnosis for this admission?: Yes (3) Obstructive jaundice due to cancer Is this a current diagnosis for this admission?: Yes (4) Acute kidney injury Is this a current diagnosis for this admission?: Yes (5) Hepatomegaly Is this a current diagnosis for this admission?: Yes Hospital Course:: RITESH HOGAN JR was a 57 year old male patient who does not have significant past medical history except for heavy smoking for about 30 years presented with chief complaint of intractable right upper quadrant pain. Patient is a known case of stage IV lung CA with metastasis to the liver. His CT scan shows massive hepatomegaly with multiple metastatic lesions. He elected DNR status and together with his family members accepted hospice care. The patient's hospitalist discussed the case with his sister who was the POA and she requested comfort care only. Patient was treated with comfort measures and peacefully at rest in his bed with dignity at 0409 on 10/23/2018.
[2018-10-26] MEDS ORDERED: SCOPOLAMINE HYDROBROMIDE 1.5 MG PATCH.TD72 TD SCH (10:00)
== END 2018-10-23 05:06 | DRG 445 ==
LOC: ER 09:32 → EH 12:14 → 3N 19:15 → 4W 10-17 22:55 → 4S 10-18 16:54
PROVIDERS: ADMIT Internal Medicine; ATTEND Internal Medicine
PROC: 3E0F73Z Introduction of Anti-inflammatory into Respiratory Tract, Via Natural or Artificial Opening (ICD-10-PCS; principal; 2018-10-15)
DX: K83.1 Obstruction of bile duct (principal); C34.90 Malignant neoplasm of unspecified part of unspecified bronchus or lung; C78.7 Secondary malignant neoplasm of liver and intrahepatic bile duct; N17.9 Acute kidney failure, unspecified; E87.1 Hypo-osmolality and hyponatremia; R16.0 Hepatomegaly, not elsewhere classified; Z66 Do not resuscitate; Z51.5 Encounter for palliative care; Z87.891 Personal history of nicotine dependence; Z92.21 Personal history of antineoplastic chemotherapy; Z92.3 Personal history of irradiation
CPT/HCPCS: 36415; 71045; 74177; 80053; 82140; 83605; 85025; 86850; 86900; 86901; 94640; 96365; 96375; 99285; J0696; J1170; J1650; J1940; J2060; J2405; J3411; J3490; J7030; J7050; J7620